=== PATIENT | male | born 1975 | race African-American/Black ===

== ENCOUNTER 2024-01-02 06:49 | Emergency (ER) | payer OTHER, SELFPAY ==
[2024-01-02 07:13] VITALS: BP 121/75; PULSE 77; RESP 18; TEMP 36.6; O2SAT 99; BMI 22.2
[2024-01-02 07:46] LABS: IDNOW Serial# 08D9AD1C; Strep A Nucleic Acid Negative (Negative)
[2024-01-02 08:13] LABS: Influenza A PCR NEGATIVE (Negative); Influenza B PCR NEGATIVE (Negative); Resp Syncy Virus RNA Qual PCR NEGATIVE (Negative); SARS COV2 PCR INHOUSE POSITIVE (Negative)
--- NOTE | 2024-01-02 08:26 | ED.GENADULT ---
HPI - General Adult General Chief complaint: Upper Respiratory Symptoms Stated complaint: pt states flu Time Seen by Provider: 01/02/24 08:26 Source: patient Mode of arrival: ambulatory Limitations: no limitations History of Present Illness ED Provider: Elisa Bills PA-C HPI narrative: Patient is a 48 year old assigned male at with no reported medical history presenting to the emergency department today with congestion, cough, headache, body aches, and right 4th finger pain / swelling. Patient states that over the last 2 days he has had a cough, congestion, headache, and body aches. Patient states that he also noticed his right 4th finger has some redness, pain, and swelling around his nail. Patient denies any dizziness, lightheadedness, abdominal pain, nausea, vomiting, fever, chills, blurry vision, double vision, loss of vision, chest pain, difficulty breathing, shortness of breath, back pain, night sweats, pain with urination, increased urinary frequency, increased urinary urgency, blood in his urine or stool, syncope or a near syncopal episode, recent trauma or falls, bowel incontinence, bladder incontinence, or any other complaints at this time. Onset (ago): day(s) (2) Severity: mild Relieving factors: none Exacerbating factors: none Associated symptoms: cough and headaches Treatments prior to arrival: none Related Data Previous Rx's ?Medication ?Instructions ?Recorded cephalexin 500 mg capsule 500 mg PO Q6H 7 days #28 caps 01/02/24 Allergies Allergy/AdvReac Type Severity Reaction Status Date / Time No Known Allergies Allergy Verified 01/02/24 07:15 Review of Systems Constitutional: Constitutional: Reports no additional constitutional complaints, Reports body ache(s), Denies chills, Denies fever(s), Reports headache(s) and Denies night sweats Eyes: Eyes: Reports no additional eye complaints, Denies blurry vision, Denies change in vision, Denies diplopia, Denies eye discharge, Denies loss of vision and Denies eye pain ENT: Denies dizziness, Reports headache(s) and Reports nasal congestion Cardiovascular: Cardiovascular: Reports no additional cardiovascular complaints, Denies chest pain, Denies lightheadedness, Denies Loss of Consciousness and Denies dyspnea Respiratory: Respiratory: Reports no additional respiratory complaints, Reports cough and Denies dyspnea Gastrointestinal: Gastrointestinal: Reports no additional gastrointestinal complaints, Denies abdominal pain, Denies melena, Denies hematochezia, Denies change in bowel habits and Denies change in stool character Genitourinary: Genitourinary: Reports no additional male genitourinary complaints, Denies hematuria, Denies oliguria, Denies difficulty urinating, Denies dysuria, Denies urinary frequency, Denies urinary hesitancy, Denies urinary incontinence and Denies urinary urgency Musculoskeletal: Musculoskeletal: Reports no additional musculoskeletal complaints, Denies numbness and Denies tingling Neurologic: Denies dizziness, Reports headache(s), Denies loss of vision, Denies numbness and Denies tingling Psychiatric: Psychiatric: Reports no additional psychiatric complaints Endocrine: Endocrine: Reports no additional endocrine complaints Hematologic/Lymphatic: Hematologic/Lymphatic: Reports no additional hematologic/lymphatic complaints Allergic/Immunologic: Allergic/Immunologic: Reports no additional allergic/immunologic complaints PMFSH Past Medical History Attestation statement: The following information was validated with the patient. Source: old records reviewed and nursing notes reviewed Social History Social History Advance Directives: No Advance Directives Information Provided: Yes Physical Exam ED Vital Signs: Vital Signs - 24 hr 01/02/24 07:13 01/02/24 08:51 Temperature 97.8 F 97.8 F Pulse Rate 77 77 Respiratory Rate 18 18 Blood Pressure 121/75 121/75 Pulse Oximetry 99 99 Oxygen Delivery Method Room Air Room Air BMI result Body Mass Index 22.2 Const General: cooperative, no acute distress, alert and awake Nutritional Appearance: well nourished Orientation/consciousness: patient oriented x3 Limitations: no limitations [facility] Head: Yes normal to inspection and Yes atraumatic Ears: hearing grossly normal bilaterally and external ears normal General nose exam: Normal external nose present, no nasal discharge noted and no epistaxis Face and sinus: Yes normal facial exam, No abrasion and No laceration Mouth: Normal oral and palatal mucosa present, no drooling and no muffled voice Eyes General: appearance normal, both eyes and all related structures Periorbital: periorbital findings normal Eyelids: Yes eyelids normal Conjunctivae: conjunctivae normal Pupils: Equal, round and reactive pupils present EOM: EOMs intact bilaterally Neck Neck: Yes normal visual inspection, Yes full ROM and Yes no lymphadenopathy Chest Chest palpation & inspection: normal inspection of the chest Resp Effort & Inspection: normal respiratory effort and able to speak in complete sentences GI Inspection: Yes normal to inspection Neuro General: patient oriented x3 and moves all extremities Cranial nerves: Yes Equal, round and reactive pupils present Cognition (Neuro): normal cognition Extrem Other: minimal swelling present around the finger nail of the right 4th digit with minimal erythema and warmth General: Yes full ROM and Yes capillary refill normal Psych Appearance: grossly normal Mental Status: mental status grossly normal Affect: normal affect Attitude: cooperative Thought process: Normal thought process present Thought content: Normal thought content present Insight: Good insight present (Psych) Medical Decision Making Medical Decision Making MDM Narrative: Patient is a 48 year old assigned male at with no reported medical history presenting to the emergency department today with right 4th finger pain, headache, cough, congestion, and body aches. Patient's physical exam was as noted in the physical exam portion of this note. Patient's right 4th finger has a paronychia with no fluctuance. Patient's Influenza and RSV swabs were negative. Patient's COVID-19 test was positive. I explained my physical exam findings as well as all test results to the patient. I answered all questions asked by the patient. I stressed the importance of the patient taking his medication as directed (either prescribed or as the over the counter packaging recommends). I stressed the importance of the patient following up with his primary care provider. I stressed the importance of the patient returning to the emergency department immediately if his symptoms were to worsen or if he were to develop any dizziness, shortness of breath, difficulty breathing, chest pain, blurry vision, loss of vision, nausea, vomiting, abdominal pain, fever, chills, back pain, or any other complaints. Patient verbalized agreement and understanding with this treatment plan and discharge. Differential Diagnosis Differential Diagnoses: The differential diagnosis associated with the presentation includes COVID-19 Influenza RSV Paronychia Admission/Observation Consideration of admission/observation: Escalation of care including admission/observation considered Patient would have been admitted to the hospital had his work up had any findings where hospital admission was appropriate and his clinical presentation warranted hospital admission. Lab Data [facility] Lab Attestation statement: I reviewed the patient's lab results. My interpretation of these results are in the MDM Rationale portion of this note. Labs: Lab Results 01/02/24 Range/Units 07:30 Influenza Type A (PCR) NEGATIVE (Negative) Influenza Type B (PCR) NEGATIVE (Negative) RSV RNA Qual (PCR) NEGATIVE (Negative) SARS-CoV-2 RNA (RT-PCR) POSITIVE A (Negative) S. pyogenes GrpA RAYMUNDO Negative (Negative) Prescription Management I considered prescription management with: Antibiotic (patient prescribed an antibiotic for paronychia) Discharge Plan Discharge Clinical Impression: COVID-19, Paronychia of finger Patient Disposition: Home, Self-Care Instructions: Paronychia (ED), COVID-19 (Coronavirus Disease 2019) (ED) Additional Instructions: Apply warm compresses to your right 4th finger. Follow up with your primary care provider. Return to the emergency department immediately if your symptoms worsen or if you develop any dizziness, shortness of breath, difficulty breathing, chest pain, blurry vision, loss of vision, nausea, vomiting, abdominal pain, fever, chills, back pain, or any other complaints. Prescriptions: New cephalexin 500 mg capsule 500 mg PO Q6H 7 Days Qty: 28 0RF Referrals: Yaneth Reich FNP [Primary Care Provider] - Stand Alone Forms: Work/School Release Interventions: ED Discharge Assessment Last Done: 01/02/24 08:51 Discharge Date/Time: 01/02/24 08:52 Print Language: Qatari
[2024-01-02 08:51] VITALS: BP 121/75; PULSE 77; RESP 18; TEMP 36.6; O2SAT 99
== END 2024-01-02 08:52 | disposition home or self-care (01) ==
PROVIDERS: Emergency Provider Student in an Organized Health Care Education/Training Program; PCP Registered Nurse
DX: U07.1 COVID-19 (principal); L03.011 Cellulitis of right finger
CPT/HCPCS: 0241U; 87651; 99283

== ENCOUNTER 2024-03-26 18:43 | Emergency (ER) | payer OTHER, SELFPAY ==
--- NOTE | ~2024-03-26 | XR_ITS ---
EXAMINATION: XR CHEST CLINICAL INFORMATION: Cough COMPARISON: None available. TECHNIQUE: 2 views of the chest were obtained. FINDINGS: No significant abnormality is noted involving the heart, lungs, mediastinum, bony thorax or soft tissues. XR/XR chest 2V IMPRESSION: Unremarkable examination. Electronically signed by: Sandra Covington MD 03/26/2024 07:18 PM EDT RP
[2024-03-26 19:02] VITALS: BP 111/73; PULSE 82; RESP 20; TEMP 37; O2SAT 98; BMI 23.6
--- NOTE | 2024-03-26 19:04 | ED_ITS ---
HPI - General Adult General Chief complaint: Upper Respiratory Symptoms Stated complaint: congested cough fever Time Seen by Provider: 03/26/24 23:05 Source: patient Mode of arrival: ambulatory Limitations: no limitations History of Present Illness HPI narrative: Patient is a 49-year-old male who presents emergency department for evaluation of a nonproductive cough, nasal congestion, body aches with onset last night. 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 Denies fevers, chills, headache, neck pain, neck stiffness, chest pain, difficulty breathing, sore throat, nausea, vomiting, abdominal pain, numbness or tingling of the extremities, genitourinary symptoms. Related Data Previous Rx's ?Medication ?Instructions ?Recorded cephalexin 500 mg capsule 500 mg PO Q6H 7 days #28 caps 01/02/24 Allergies Allergy/AdvReac Type Severity Reaction Status Date / Time No Known Allergies Allergy Verified 03/26/24 19:03 Review of Systems Review of Systems: Yes all other systems are reviewed and are negative [facility] Past Medical History Attestation statement: The following information was validated with the patient. Source: old records reviewed Social History Social History Advance Directives: No Advance Directives Information Provided: Yes Do you have a plan to hurt others: No Plan Physical Exam ED Vital Signs: Vital Signs - 24 hr 03/26/24 19:02 03/26/24 22:54 Temperature 98.6 F 98.4 F Pulse Rate 82 86 Respiratory Rate 20 20 Blood Pressure 111/73 128/72 Pulse Oximetry 98 98 Oxygen Delivery Method Room Air Room Air BMI result Body Mass Index 23.6 Appearance: Alert.?Oriented to person, place and time. No acute distress.?Normal affect. Eyes: Pupils equal, round and reactive to light.? ENT: Pharynx normal.??TM normal bilaterally. Nasal congestion, no tenderness upon palpation of the maxillary or frontal sinus Neck: Normal inspection.? Neck supple.??No cervical adenopathy CVS: Heart sounds normal. Normal heart rate and rhythm.? Pulses normal.?? Respiratory: No respiratory distress.? Lung sounds clear to auscultation bilaterally?? Abdomen: Soft and non-tender. Normoactive bowel sounds. ? Skin: Skin warm and dry.? Normal skin color.? Extremities: No lower extremity edema.? Neuro: Moves all extremities spontaneously. Sensation intact bilaterally. Ambulates with normal steady gait. Course Course Course Narrative: RME, this is a rapid medical exam performed by Adolfo Flores please refer to primary provider for complete H&P- 49 year old male presents for evaluation of cough, congestion and body aches. He works here in the kitchen. Plan for viral swabs and chest x-rays. His vitals are stable Medical Decision Making Medical Decision Making MDM Narrative: Patient is a 49-year-old male, presenting for evaluation of upper respiratory symptoms. COVID-19/influenza/RSV testing negative. At this time history and physical exam not consistent with ACS/PE/pneumonia. Well-appearing, nontoxic, afebrile, no tachycardia or tachypnea/hypoxia. Speaking clear full sentences, ambulatory with steady gait. Discussed conservative treatment including rest, hydration, Tylenol/ibuprofen as needed for fever and body aches, saline nasal spray, humidifier, adrl-cll-slyrmsl cold medication. Advised to follow-up with primary care provider as needed, discussed reasons to return back to the emergency department. All questions were answered. Patient discharged home in stable condition. Provided with a return to work/school note. Differential Diagnosis Differential Diagnoses: The differential diagnosis associated with the present ation includes ( See narrative above) Lab Data MDM Lab Attestation statement: I reviewed the patient's lab results. ( see narrative above) Labs: Lab Results 03/26/24 Range/Units 19:09 Influenza Type A (PCR) NEGATIVE (Negative) Influenza Type B (PCR) NEGATIVE (Negative) RSV RNA Qual (PCR) NEGATIVE (Negative) SARS-CoV-2 RNA (RT-PCR) NEGATIVE (Negative) Independent Interpretation I performed an independent interpretation of an: Plain X-Ray (No consolidation or infiltrate) Radiology Impression Discussion of test interpretation with radiology: I have reviewed the radiologist's reading. Radiologist Impression: XR/XR chest 2V IMPRESSION: Unremarkable examination External Record Review External record reviewed: Outpatient record Prescription Management I considered prescription management with: Pain Medication ( acetaminophen/ibuprofen) Discharge Plan Discharge Clinical Impression: Upper respiratory infection Patient Disposition: Home, Self-Care Instructions: Upper Respiratory Infection (ED) Additional Instructions: Be sure to rest, stay well hydrated drinking plenty of fluids, eat small frequent meals. Tylenol/ibuprofen can be used as needed for fever/pain. [id number]-[id number] cold medications may be helpful as well for symptoms. Saline nasal spray, humidifier may be helpful for nasal congestion. You may return to the emergency department with any new or worsening symptoms or concerns. Follow-up with your primary care provider as needed. Should remain out of school/ work until symptoms have resolved and have been without a fever for 24 hours without the use of Tylenol or ibuprofen. Prescriptions: No Action cephalexin 500 mg capsule 500 mg PO Q6H 7 Days Qty: 28 0RF Referrals: Physician,Unknown J [Primary Care Provider] - Stand Alone Forms: Work/School Release Print Language: Estonian
[2024-03-26 19:51] LABS: Influenza A PCR NEGATIVE (Negative); Influenza B PCR NEGATIVE (Negative); Resp Syncy Virus RNA Qual PCR NEGATIVE (Negative); SARS COV2 PCR INHOUSE NEGATIVE (Negative)
[2024-03-26 22:54] VITALS: BP 128/72; PULSE 86; RESP 20; TEMP 36.9; O2SAT 98
[2024-03-27 00:18] VITALS: BP 128/72; PULSE 86; RESP 20; TEMP 36.9; O2SAT 98
== END 2024-03-27 00:19 | disposition home or self-care (01) ==
PROVIDERS: Physician Assistant; Emergency Provider Emergency Medicine
DX: R05.9 Cough, unspecified (principal); J06.9 Acute upper respiratory infection, unspecified; Z03.818 Encounter for observation for suspected exposure to other biological agents ruled out
CPT/HCPCS: 0241U; 71046; 99282; 99283

== ENCOUNTER 2024-03-28 18:06 | Emergency (ER) | payer OTHER, SELFPAY ==
--- NOTE | ~2024-03-28 | XR_ITS ---
EXAMINATION: XR CHEST CLINICAL INFORMATION: Worsening cough COMPARISON: Chest x-ray on 03/26/2024 TECHNIQUE: 2 views of the chest were obtained. FINDINGS: No significant abnormality is noted involving the heart, lungs, mediastinum, bony thorax or soft tissues. XR/XR chest 2V IMPRESSION: Unremarkable examination. Electronically signed by: Sandra Covington MD 03/28/2024 06:57 PM EDT RP
[2024-03-28 18:27] VITALS: BP 113/74; PULSE 94; RESP 20; TEMP 36.6; O2SAT 99; BMI 22.8
--- NOTE | 2024-03-28 18:27 | ED.GENADULT ---
HPI - General Adult General Chief complaint: Upper Respiratory Symptoms Stated complaint: cold symptoms Time Seen by Provider: 03/28/24 19:23 Source: patient Limitations: no limitations History of Present Illness ED Provider: Maria Elena stephenson PA-C HPI narrative: 49-year-old male presents with cough and cold symptoms x3 days. Associated productive cough, nasal congestion and generalized weakness. Denies change in symptom or new onset fever. Related Data Previous Rx's ?Medication ?Instructions ?Recorded cephalexin 500 mg capsule 500 mg PO Q6H 7 days #28 caps 01/02/24 albuterol sulfate 90 mcg/actuation 2 puff inhalation Q4-6H PRN 03/28/24 aerosol inhaler shortness of breath or wheezing #8.5 grams prednisone 20 mg tablet 40 mg (2 x 20 mg) PO DAILY #8 tabs 03/28/24 Allergies Allergy/AdvReac Type Severity Reaction Status Date / Time No Known Allergies Allergy Verified 03/28/24 18:31 Review of Systems Review of Systems: Yes all other systems are reviewed and are negative Constitutional: Constitutional: Reports fatigue and Denies fever(s) ENT: Reports nasal congestion Respiratory: Respiratory: Reports cough and Reports excessive phlegm production Gastrointestinal: Gastrointestinal: Denies nausea and Denies vomiting Endocrine: Endocrine: Reports fatigue PMFSH Past Medical History Attestation statement: The following information was validated with the patient. Social History Social History Smoked in Last 30 Days: Yes Use of substances other than those prescribed or required for medical reasons: Yes Substance Use Type: Marijuana Substance Use Frequency: Chronic Longstanding Last Used Substance: Just Prior to Admission Advance Directives: No Advance Directives Information Provided: No Physical Exam ED Vital Signs: Vital Signs - 24 hr 03/28/24 18:27 03/28/24 20:01 03/28/24 22:21 Temperature 97.8 F 99.4 F 98.6 F Pulse Rate 94 75 80 Respiratory Rate 20 16 16 Blood Pressure 113/74 126/60 111/64 Pulse Oximetry 99 96 98 Oxygen Delivery Method Room Air Room Air Room Air BMI result Body Mass Index 22.8 Const Other: Alert, overall well in appearance Orientation/consciousness: patient oriented x3 Resp Other: Expiratory wheezes noted posterior steiner, speaking in complete sentences, no tachypnea Cardio Other: Normal peripheral perfusion Skin Other: Warm dry no rash Neuro General: patient oriented x3, no focal motor deficits and CN's II-XI intact bilaterally Psych Other: Calm cooperative Medications Administered Discontinued Medications Generic Name Dose Route Start Last Admin Trade Name Lyle PRN Reason Stop Dose Admin Albuterol Sulfate 7.5 mg 03/28/24 20:28 03/28/24 21:12 Albuterol Sulfate (0.083%) 2.5 Mg/3 Ml Vial.Neb INHALE 03/28/24 20:29 7.5 mg ONCE ONE Administration Prednisone 40 mg 03/28/24 20:28 03/28/24 20:40 Prednisone 20 Mg Tablet PO 03/28/24 20:29 40 mg ONCE ONE Administration Medical Decision Making Medical Decision Making [facility] Narrative: 49-year-old male presents with cough and cold symptoms x3 days. Associated productive cough, nasal congestion and generalized weakness. Denies change in symptom or new onset fever. No relevant chronic issues History per patient I have considered the following differential diagnoses: Asthma exacerbation, viral syndrome, bronchitis, pneumonia Plan: Patient seen in the ER on March 26 for same symptoms, he had a negative chest x-ray and negative viral panel. Today he is wheezing, he is stating he has been using his son's inhalers. We will be giving an updraft, steroid then sending with additional medication. Chest x-ray and viral panel were repeated again today. I have independently reviewed the following tests: Labs: Slight leukocytosis, not anemic, no electrolyte abnormality, viral panel negative Chest x-ray: XR/XR chest 2V IMPRESSION: Unremarkable examination. Electronically signed by: Sandra Covington MD 03/28/2024 06:57 PM EDT RP Lab Data 03/28/24 18:44 03/28/24 18:44 Labs: Lab Results 03/28/24 Range/Units 18:44 WBC 11.5 H (4.8-10.8) X10*3/uL RBC 4.97 (4.60-5.80) X10*6/uL Hgb 15.2 (14.0-18.0) g/dl Hct 43.1 (42.0-52.0) % MCV 86.7 (80.0-98.0) fL MCH 30.6 (27.0-33.0) pg MCHC 35.3 (31.0-36.0) g/dl RDW 12.5 (11.0-16.0) % Plt Count 264 (160-400) X10*3/uL MPV 10.0 (9.4-12.4) fL Immature Gran % (Auto) 0.2 (0.0-0.4) % Neut % (Auto) 61.7 (45-73) % Lymph % (Auto) 23.2 (20-40) % Mcdonough % (Auto) 11.6 H (2-11) % Eos % (Auto) 2.7 (0-4) % Baso % (Auto) 0.6 (0-2) % Lymph # (Auto) 2.7 (1.2-4.9) X10*3/uL Mcdonough # (Auto) 1.3 H (0.1-1.2) X10*3/uL Eos # (Auto) 0.3 (0.0-0.4) X10*3/uL Baso # (Auto) 0.1 (0.0-0.2) X10*3/uL Abs Immat Gran (auto) 0.02 (0.00-0.03) X10*3/uL Absolute Neuts (auto) 7.1 (2.0-8.3) x10*3/uL Absolute Nucleated RBC 0.000 (0.0-0.012) X10*3/uL Nucleated RBC % (auto) 0.0 (0.0-0.2) /100WBC Sodium 140 (135-145) mmol/L Potassium 3.8 (3.3-5.1) mmol/L Chloride 106 (96-108) mmol/L Carbon Dioxide 24 (22-29) mmol/L Anion Gap 14 (12-20) BUN 9 (9-16) mg/dL Creatinine 0.83 (0.5-1.4) mg/dL Estim Creat Clear Calc 105.8 Estimated GFR > 60 Random Glucose 115 (60-115) mg/dL Calcium 9.0 (8.4-10.2) mg/dL Total Bilirubin 0.3 (0.0-1.0) mg/dL AST 22 (5-37) U/L ALT 17 (0-40) U/L Alkaline Phosphatase 54 (39-117) U/L Total Protein 7.3 (6.5-8.0) g/dL Albumin 4.0 (3.5-5.0) g/dL Influenza Type A (PCR) NEGATIVE (Negative) Influenza Type B (PCR) NEGATIVE (Negative) RSV RNA Qual (PCR) NEGATIVE (Negative) SARS-CoV-2 RNA (RT-PCR) NEGATIVE (Negative) Discharge Plan Discharge Clinical Impression: Viral syndrome, Reactive airway disease without asthma Patient Disposition: Home, Self-Care Instructions: How to Use a Metered-Dose Inhaler (ED), Viral Syndrome (ED) Additional Instructions: The viral panel and chest x-ray were negative, you do not have pneumonia, you do not have RSV, influenza or COVID. Your airway has become reactive due to yet another respiratory virus that his circulating in the community. Use the inhaler as needed for wheezing, take the steroid as directed. You need to follow up with your primary care provider within a week. Prescriptions: New albuterol sulfate 90 mcg/actuation HFA aerosol inhaler 2 puff inhalation Q4-6H MDD 4 PRN (Reason: shortness of breath or wheezing) Qty: 8.5 0RF prednisone 20 mg tablet 40 mg PO DAILY Qty: 8 0RF No Action cephalexin 500 mg capsule 500 mg PO Q6H 7 Days Qty: 28 0RF Stand Alone Forms: Work/School Release Print Language: Montserratian
[2024-03-28 18:49] LABS: MANUAL DIFF FLAG NO
[2024-03-28 18:51] LABS: Basophils Absolute Auto 0.1 X10*3/uL (0.0-0.2); Basophils Percent Auto 0.6 % (0-2); Eosinophils Absolute Auto 0.3 X10*3/uL (0.0-0.4); Eosinophils Percent Auto 2.7 % (0-4); Hematocrit 43.1 % (42.0-52.0); Hemoglobin 15.2 g/dl (14.0-18.0); Imm Gran Abs Auto 0.02 X10*3/uL (0.00-0.03); Imm Gran Pct Auto 0.2 % (0.0-0.4); Lymphocytes Absolute Auto 2.7 X10*3/uL (1.2-4.9); Lymphocytes Percent Auto 23.2 % (20-40); Mean Corpuscular HGB Conc 35.3 g/dl (31.0-36.0); Mean Corpuscular Hemoglobin 30.6 pg (27.0-33.0); Mean Corpuscular Volume 86.7 fL (80.0-98.0); Monocytes Absolute Auto 1.3 X10*3/uL (0.1-1.2); Monocytes Percent Auto 11.6 % (2-11); Neutrophils Absolute Auto 7.1 x10*3/uL (2.0-8.3); Neutrophils Percent Auto 61.7 % (45-73); Platelet Count 264 X10*3/uL (160-400); Red Blood Count 4.97 X10*6/uL (4.60-5.80); Red Cell Distribution Width 12.5 % (11.0-16.0); White Blood Count 11.5 X10*3/uL (4.8-10.8)
[2024-03-28 19:08] LABS: Alanine Aminotransferase 17 U/L (0-40); Alkaline Phosphatase 54 U/L (39-117); Anion Gap 14 (12-20); Aspartate Amino Transferase 22 U/L (5-37); Bilirubin Total 0.3 mg/dL (0.0-1.0); Blood Urea Nitrogen 9 mg/dL (9-16); Carbon Dioxide 24 mmol/L (22-29); Chloride 106 mmol/L (96-108); Creatinine Clr Calc Pharmacy 105.8; Estimated Glomerular Filt Rate > 60; Glucose Random 115 mg/dL (60-115); Potassium 3.8 mmol/L (3.3-5.1); Sodium 140 mmol/L (135-145); Total Protein 7.3 g/dL (6.5-8.0)
[2024-03-28 19:27] LABS: Influenza A PCR NEGATIVE (Negative); Influenza B PCR NEGATIVE (Negative); Resp Syncy Virus RNA Qual PCR NEGATIVE (Negative); SARS COV2 PCR INHOUSE NEGATIVE (Negative)
[2024-03-28 20:01] VITALS: BP 126/60; PULSE 75; RESP 16; TEMP 37.4; O2SAT 96
[2024-03-28] MEDS: predniSONE 20 MG TABLET 40 MG PO (20:40)
[2024-03-28] MEDS: Albuterol Sulfate (0.083%) 2.5 MG/3 ML VIAL.NEB 7.5 MG INHALE (21:12)
[2024-03-28 22:21] VITALS: BP 111/64; PULSE 80; RESP 16; TEMP 37; O2SAT 98
[2024-03-28 22:44] VITALS: BP 111/64; PULSE 80; RESP 16; TEMP 37; O2SAT 98
[2024-03-29 11:35] LABS: Adenovirus PCR Not Detected (Not Detect.); Bordetella parapertussis PCR Not Detected (Not Detect.); Bordetella pertussis PCR Not Detected (Not Detect.); Chlamydia pneumoniae PCR Not Detected (Not Detect.); Coronavirus 229E PCR Not Detected (Not Detect.); Coronavirus HKU1 PCR Not Detected (Not Detect.); Coronavirus NL63 PCR Not Detected (Not Detect.); Coronavirus OC43 PCR Not Detected (Not Detect.); Human metapneumovirus PCR Not Detected (Not Detect.); Influenza A PCR Not Detected (Not Detect.); Influenza B PCR Not Detected (Not Detect.); Mycoplasma pneumoniae PCR Not Detected (Not Detect.); Parainfluenza 1 PCR Not Detected (Not Detect.); Parainfluenza 2 PCR Not Detected (Not Detect.); Parainfluenza 3 PCR Not Detected (Not Detect.); Parainfluenza 4 PCR Not Detected (Not Detect.); RSV PCR Not Detected (Not Detect.); Rhino/Enterovirus PCR Detected (Not Detect.)
[2024-03-29 12:11] LABS: SARS-CoV-2 PCR Not Detected (Not Detect.)
== END 2024-03-28 22:44 | disposition home or self-care (01) ==
PROVIDERS: Physician Assistant Medical; Emergency Provider Emergency Medicine; PCP Registered Nurse
DX: B34.1 Enterovirus infection, unspecified (principal); Z03.818 Encounter for observation for suspected exposure to other biological agents ruled out; R05.9 Cough, unspecified
CPT/HCPCS: 0241U; 36415; 71046; 80053; 85025; 87633; 99284

== ENCOUNTER 2024-04-06 19:27 | Emergency (ER) | payer OTHER, SELFPAY ==
[2024-04-06 19:30] VITALS: BP 107/62; PULSE 92; RESP 18; TEMP 36.8; O2SAT 98; BMI 22.8
--- NOTE | 2024-04-06 19:40 | ED.EXTPRO ---
HPI - Extremity Problem General Chief complaint: Extremity Injury, Upper Stated complaint: RT ring finger infection? Source: patient Mode of arrival: ambulatory Limitations: no limitations History of Present Illness ED Provider: Elisa Bills PA-C HPI Narrative: Patient is a 49 year old assigned male at with no reported medical history presenting to the emergency department today with right 4th finger swelling. Patient states that over the last few days he has noticed that his right 4th finger was swollen. Patient denies any dizziness, lightheadedness, abdominal pain, nausea, vomiting, fever, chills, blurry vision, double vision, loss of vision, chest pain, difficulty breathing, shortness of breath, back pain, night sweats, pain with urination, increased urinary frequency, increased urinary urgency, blood in his urine or stool, syncope or a near syncopal episode, recent trauma or falls, bowel incontinence, bladder incontinence, or any other complaints at this time. Onset (ago): day(s) Location: right and other (4th finger) Relieving factors: nothing Exacerbating factors: nothing Associated symptoms: denies other symptoms Related Data Previous Rx's ?Medication ?Instructions ?Recorded cephalexin 500 mg capsule 500 mg PO Q6H 7 days #28 caps 01/02/24 albuterol sulfate 90 mcg/actuation 2 puff inhalation Q4-6H PRN 03/28/24 aerosol inhaler shortness of breath or wheezing #8.5 grams prednisone 20 mg tablet 40 mg (2 x 20 mg) PO DAILY #8 tabs 03/28/24 cephalexin 500 mg capsule 500 mg PO QID 5 days #20 caps 04/07/24 doxycycline hyclate 100 mg capsule 100 mg PO BID 5 days #10 caps 04/07/24 efinaconazole 10 % topical 1 appl topical DAILY #8 mL 04/07/24 solution with applicator Allergies Allergy/AdvReac Type Severity Reaction Status Date / Time No Known Allergies Allergy Verified 04/07/24 07:17 Review of Systems Constitutional: Constitutional: Reports no additional constitutional complaints, Denies chills, Denies fever(s) and Denies night sweats Eyes: Eyes: Reports no additional eye complaints, Denies blurry vision, Denies change in vision, Denies diplopia, Denies eye discharge, Denies loss of vision and Denies eye pain ENT: Denies dizziness Cardiovascular: Cardiovascular: Reports no additional cardiovascular complaints, Denies chest pain, Denies lightheadedness, Denies Loss of Consciousness and Denies dyspnea Respiratory: Respiratory: Reports no additional respiratory complaints and Denies dyspnea Gastrointestinal: Gastrointestinal: Reports no additional gastrointestinal complaints, Denies abdominal pain, Denies melena, Denies hematochezia, Denies change in bowel habits and Denies change in stool character Genitourinary: Genitourinary: Reports no additional male genitourinary complaints, Denies hematuria, Denies oliguria, Denies difficulty urinating, Denies dysuria, Denies urinary frequency, Denies urinary hesitancy, Denies urinary incontinence and Denies urinary urgency Musculoskeletal: Musculoskeletal: Reports no additional musculoskeletal complaints, Denies numbness and Denies tingling Comments: right 4th finger swelling Neurologic: Denies dizziness, Denies loss of vision, Denies numbness and Denies tingling Psychiatric: Psychiatric: Reports no additional psychiatric complaints Endocrine: Endocrine: Reports no additional endocrine complaints Hematologic/Lymphatic: Hematologic/Lymphatic: Reports no additional hematologic/lymphatic complaints Allergic/Immunologic: Allergic/Immunologic: Reports no additional allergic/immunologic complaints [facility] [place] Past Medical History Attestation statement: The following information was validated with the patient. Source: old records reviewed and nursing notes reviewed Social History Social History Substance Use Type: Marijuana Advance Directives: No Advance Directives Information Provided: No Do you have a plan to hurt others: No Plan Physical Exam Vital Signs: Vital Signs: Last Vital Signs Temp 98.3 F 04/06/24 19:30 Pulse 92 04/06/24 19:30 Resp 18 04/06/24 19:30 BP 107/62 04/06/24 19:30 Pulse Ox 98 04/06/24 19:30 O2 Del Method Room Air 04/06/24 19:30 BMI result Body Mass Index 22.8 Const: General: cooperative, no acute distress, alert and awake Nutritional Appearance: well nourished Orientation/consciousness: patient oriented x3 Limitations: no limitations HEENT: Head: Yes normal to inspection and Yes atraumatic Ears: hearing grossly normal bilaterally and external ears normal General nose exam: Normal external nose present, no nasal discharge noted and no epistaxis Face and sinus: Yes normal facial exam, No abrasion and No laceration Mouth: Normal oral and palatal mucosa present, no drooling and no muffled voice Eyes: General: appearance normal, both eyes and all related structures Periorbital: periorbital findings normal Eyelids: Yes eyelids normal Conjunctivae: conjunctivae normal Pupils: Equal, round and reactive pupils present EOM: EOMs intact bilaterally Neck: Neck: Yes normal visual inspection, Yes full ROM and Yes no lymphadenopathy Chest: Chest palpation & inspection: normal inspection of the chest Resp: Effort & Inspection: normal respiratory effort and able to speak in complete sentences GI: Inspection: Yes normal to inspection Neuro: General: patient oriented x3 and moves all extremities Cranial nerves: Yes Equal, round and reactive pupils present Cognition (Neuro): normal cognition Extrem: Other: right 4th finger paronychia General: Yes full ROM and Yes capillary refill normal Psych: Appearance: grossly normal Mental Status: mental status grossly normal Affect: normal affect Attitude: cooperative Thought process: Normal thought process present Thought content: Normal thought content present Insight: Good insight present (Psych) Course Course Course Narrative: RME performed by Elisa Bills PA-C. Patient is a 49 year old assigned male at presenting to the emergency department with a right 4th finger swelling. Patient states over the last few days he has noted his right ring finger is welling. Detailed physical exam and review of systems are deferred to the bevel mill operator. Patient placed back in the waiting room pending room availability. Medical Decision Making Medical Decision Making MDM Narrative: Patient is a 49 year old assigned male at with no reported medical history presenting to the emergency department today with right 4th finger swelling. Patient's limited physical exam performed in triage was as noted in the physical exam portion of this note. Patient left the department without completing treatment. Patient left the department before myself or any of the other emergency department clinicians could explain to or review with the patient; physical exam findings, test results, need or lack there of for additional testing, need or lack there of for a procedure to be performed, need or lack there of for hospital admission / transfer, need or lack there of for prescription medication, treatment options, or a treatment plan. Differential Diagnosis Differential Diagnoses: The differential diagnosis associated with the presentation includes Paronychia Admission/Observation Consideration of admission/observation: Escalation of care including admission/observation considered Patient would have been admitted to the hospital had he completed his work up and it had any findings where hospital admission was appropriate, his clinical presentation warranted hospital admission, had myself or any other emergency department traffic freight router had the ability to discuss need or lack there of for hospital admission, and the patient hadn't left the department without completing treatment. Discharge Plan Discharge Clinical Impression: Finger swelling Patient Disposition: Left W/O Completing Treatment Prescriptions: No Action cephalexin 500 mg capsule 500 mg PO Q6H 7 Days Qty: 28 0RF albuterol sulfate 90 mcg/actuation HFA aerosol inhaler 2 puff inhalation Q4-6H MDD 4 PRN (Reason: shortness of breath or wheezing) Qty: 8.5 0RF prednisone 20 mg tablet 40 mg PO DAILY Qty: 8 0RF cephalexin 500 mg capsule 500 mg PO QID 5 Days Qty: 20 0RF doxycycline hyclate 100 mg capsule 100 mg PO BID 5 Days Qty: 10 0RF efinaconazole 10 % solution with applicator 1 appl topical DAILY Qty: 8 0RF Discharge Date/Time: 04/07/24 04:21
--- NOTE | 2024-04-07 04:21 | PC.NURSE ---
Pt no answer when called for reassessment.
== END 2024-04-07 04:21 | disposition left against medical advice (07) ==
LOC: HO.ED 04-07 04:17
PROVIDERS: Emergency Provider Emergency Medicine
DX: M79.89 Other specified soft tissue disorders (principal); Z53.21 Procedure and treatment not carried out due to patient leaving prior to being seen by health care provider
CPT/HCPCS: 99281

== ENCOUNTER 2024-04-07 06:55 | Emergency (ER) | payer OTHER, SELFPAY ==
[2024-04-07 07:15] VITALS: BP 115/70; PULSE 84; RESP 18; TEMP 36.3; O2SAT 99; BMI 22.8
[2024-04-07 09:03] VITALS: BP 122/74; PULSE 56; RESP 14; TEMP 36.3; O2SAT 100
--- NOTE | 2024-04-07 09:17 | ED_ITS ---
HPI - Extremity Problem General Chief complaint: Extremity Injury, Upper Stated complaint: Finger pain here earlier Time Seen by Provider: 04/07/24 09:02 Source: patient and RN notes reviewed Mode of arrival: ambulatory Limitations: no limitations History of Present Illness ED Provider: Katerine Encinas PA-C HPI Narrative: This is a 49-year-old male who presents emergency department with complaints of ongoing right 4th digit pain, swelling x 1 month. 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 He has been soaking his finger in warm water however states that this is not alleviated his pain. He states that he previously had a similar episode where he had to have this excised and drained however states that he feels as though it is not at that point. He denies any fevers or chills. He is right-handed. He states that he noticed the nail on his fingers is now more discolored. He recently completed a course of antibiotics, he was on amoxicillin which he completed which provided him with some relief. No other complaints or concerns at this time. MD Complaint: extremity pain and extremity swelling Onset (ago): month(s) Pain Consistency: constant Location: right and upper extremity Radiation: none Relieving factors: nothing Exacerbating factors: palpation Associated symptoms: denies other symptoms Related Data Previous Rx's ?Medication ?Instructions ?Recorded cephalexin 500 mg capsule 500 mg PO Q6H 7 days #28 caps 01/02/24 albuterol sulfate 90 mcg/actuation 2 puff inhalation Q4-6H PRN 03/28/24 aerosol inhaler shortness of breath or wheezing #8.5 grams prednisone 20 mg tablet 40 mg (2 x 20 mg) PO DAILY #8 tabs 03/28/24 cephalexin 500 mg capsule 500 mg PO QID 5 days #20 caps 04/07/24 doxycycline hyclate 100 mg capsule 100 mg PO BID 5 days #10 caps 04/07/24 efinaconazole 10 % topical 1 appl topical DAILY #8 mL 04/07/24 solution with applicator Allergies Allergy/AdvReac Type Severity Reaction Status Date / Time No Known Allergies Allergy Verified 04/07/24 07:17 Review of Systems Review of Systems: Yes all other systems are reviewed and are negative PMFSH Social History Social History Substance Use Type: Marijuana Advance Directives: No Advance Directives Information Provided: No Do you have a plan to hurt others: No Plan Physical Exam Vital Signs: Vital Signs: Last Vital Signs Temp 97.4 F 04/07/24 09:03 Pulse 56 04/07/24 09:03 Resp 14 04/07/24 09:03 BP 122/74 04/07/24 09:03 Pulse Ox 100 04/07/24 09:03 O2 Del Method Room Air 04/07/24 09:03 BMI result Body Mass Index 22.8 Const: Other: General: Awake, alert, and oriented X3. No acute distress. HEENT: Normal inspection CVS: Normal heart rate and rhythm. Pulses normal. Respiratory: No respiratory distress Skin: Warm, dry, no rashes noted to exposed skin. Normal skin color. Normal skin turgor. Extremities: Right 4th digit, with mild edema noted to the DIP, no erythema or fluctuance. Nail is discolored with a yellowing like appearance and cracking Neuro: Oriented X 3. No motor deficit. No sensory deficit. Medical Decision Making Medical Decision Making MDM Narrative: This is a 49 year old male who presents emergency department with complaints of ongoing right 4th digit pain and swelling for the last month. On arrival, vital signs within normal limits. Right digit with mild edema, no fluctuance, and discoloration of the nail bed. Discussed that this may have been a old paronychia, there is no area of fluctuance that I think would benefit from an I and D at this time. Patient agrees and would like to start a course of antibiotics, will treat with topical antifungal as well. Advised patient to follow-up with PCP, advised to call today to make an appointment. He understands and agrees with plan. Given strict return precautions. Patient stable for discharge Differential Diagnosis Differential Diagnoses: The differential diagnosis associated with the presentation includes Onychomycosis, paronychia, cellulitis, osteomyelitis-unlikely Discharge Plan Discharge Clinical Impression: Onychomycosis, Cellulitis of finger Patient Disposition: Home, Self-Care Instructions: Cellulitis (ED) Additional Instructions: You were seen in the emergency department due to ongoing finger pain and swelling. Please continue to perform warm soaks. Your nail does appear to have a fungal infection therefore we are treating you with a topical antifungal medication. I am also starting you on 2 different antibiotics, finish the entire course even if you are feeling better. Please follow-up with your primary care physician regarding this visit. If any new or worsening symptoms occur including but not limited to worsening redness, pain, swelling, please return for re-evaluation. Prescriptions: New cephalexin 500 mg capsule 500 mg PO QID 5 Days Qty: 20 0RF doxycycline hyclate 100 mg capsule 100 mg PO BID 5 Days Qty: 10 0RF efinaconazole 10 % solution with applicator 1 appl topical DAILY Qty: 8 0RF No Action cephalexin 500 mg capsule 500 mg PO Q6H 7 Days Qty: 28 0RF albuterol sulfate 90 mcg/actuation HFA aerosol inhaler 2 puff inhalation Q4-6H MDD 4 PRN (Reason: shortness of breath or wheezing) Qty: 8.5 0RF prednisone 20 mg tablet 40 mg PO DAILY Qty: 8 0RF Stand Alone Forms: Work/School Release Print Language: [place]
[2024-04-07 09:41] VITALS: BP 122/74; PULSE 56; RESP 14; TEMP 36.3; O2SAT 100
== END 2024-04-07 09:41 | disposition home or self-care (01) ==
PROVIDERS: Emergency Provider Emergency Medicine; PCP Registered Nurse
DX: L03.011 Cellulitis of right finger (principal); B35.1 Tinea unguium; M79.644 Pain in right finger(s)
CPT/HCPCS: 99283

== ENCOUNTER 2024-04-26 13:09 | Emergency (ER) | payer OTHER, SELFPAY ==
[2024-04-26 13:15] VITALS: BP 122/82; PULSE 77; RESP 20; TEMP 36.5; O2SAT 97; BMI 22.8
--- NOTE | 2024-04-26 13:33 | ED_ITS ---
HPI - General Adult General Chief complaint: Skin/Abscess/Foreign Body Stated complaint: finger issue Time Seen by Provider: 04/26/24 15:00 Source: patient Mode of arrival: ambulatory Limitations: no limitations History of Present Illness ED Provider: Omar RODRIGUEZ HPI narrative: 49 year old man history of cellulitis presents to ED for right thumb pain and he is concerned for early cellulitis infection. Patient states right thumb irritated and becoming swollen with slight redness. Patient has complete range of motion of thumb. Patient denies any recent trauma, fever, chills, insect bite or IV drug use. 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 Patient denies any exposure to any hot oil or hot fluids. Related Data Previous Rx's ?Medication ?Instructions ?Recorded cephalexin 500 mg capsule 500 mg PO Q6H 7 days #28 caps 01/02/24 albuterol sulfate 90 mcg/actuation 2 puff inhalation Q4-6H PRN 03/28/24 aerosol inhaler shortness of breath or wheezing #8.5 grams prednisone 20 mg tablet 40 mg (2 x 20 mg) PO DAILY #8 tabs 03/28/24 cephalexin 500 mg capsule 500 mg PO QID 5 days #20 caps 04/07/24 doxycycline hyclate 100 mg capsule 100 mg PO BID 5 days #10 caps 04/07/24 efinaconazole 10 % topical 1 appl topical DAILY #8 mL 04/07/24 solution with applicator cephalexin 500 mg capsule 500 mg PO QID 7 days #28 caps 04/26/24 doxycycline hyclate 100 mg capsule 100 mg PO BID 7 days #14 caps 04/26/24 naproxen 500 mg tablet 500 mg PO BID PRN pain 7 days #14 04/26/24 tabs Allergies Allergy/AdvReac Type Severity Reaction Status Date / Time No Known Allergies Allergy Verified 04/26/24 13:16 Review of Systems 2 Review of Systems: Left thumb pain Yes all other systems are reviewed and are negative PMFSH Social History Social History Substance Use Type: Marijuana Advance Directives: No Advance Directives Information Provided: No Physical Exam ED Vital Signs: Vital Signs - 24 hr 12/01/24 13:15 Temperature 97.7 F Pulse Rate 77 Respiratory Rate 20 Blood Pressure 122/82 Pulse Oximetry 97 Oxygen Delivery Method Room Air BMI result Body Mass Index 22.8 Const General: cooperative, healthy appearing, comfortable, no acute distress, well developed, alert, awake and Physically active Orientation/consciousness: patient oriented x3 [facility] Head: Yes normal to inspection, Yes No palpable skull fracture present, Yes normocephalic and Yes atraumatic Eyes General: appearance normal, both eyes and all related structures Neck Neck: Yes normal visual inspection, Yes full ROM, Yes no lymphadenopathy, Yes no meningeal signs, Yes trachea midline, Yes supple, No anterior neck swelling and No tender Chest Chest palpation & inspection: normal inspection of the chest and normal palpation of entire chest wall Resp Effort & Inspection: normal respiratory effort and able to speak in complete sentences Auscultation: clear to auscultation bilaterally Cardio Jugular venous distension: no JVD Heart sounds: S1 normal heart sound present and S2 normal heart sound present GI Inspection: Yes normal to inspection Palpation (GI): Soft to palpation, not firm, nontender, no guarding and not rigid General: Yes no CVA tenderness Back/Spine/Pelvis Back: no CVA tenderness and No back tenderness Skin General skin exam: no rashes or lesions noted, elasticity normal and turgor normal Neuro General: patient oriented x3, gait normal, tone normal, moves all extremities, Normal light touch and pain sensation, no meningeal signs, no focal motor deficits, CN's II-XI intact bilaterally and normal sensation to monofilament Extrem General: Yes normal to inspection and Yes full ROM Hand/finger images: 2 1. Positive for tenderness and slight swelling on palpation without any green yellow pus discharge. Negative for stiffness or bluish black discoloration. Positive for mild erythema. Negative for signs of tenosynovitis. All fingers able to move. Rest of extremity normal. Motor/neuro/vascular exam intact Psych Appearance: grossly normal, well kempt and not disheveled Course Course Course Narrative: RME performed by Elisa Bills PA-C. Patient is a 49 year old assigned male at presenting to the emergency department with a left thumb infection. Detailed physical exam and review of systems are deferred to the prosthetics technician. Patient placed back in the waiting room pending room availability. Medical Decision Making Medical Decision Making MDM Narrative: 49-year-old male presents to ED for right thumb pain irritation. Physical exam profuse early cellulitis. Not suspecting any osteomyelitis, tenosynovitis, compartment syndrome, arterial occlusion, DVT, necrotizing fasciitis, any other life-threatening etiology. Patient will be discharged with antibiotics informed to follow up with primary care provider. Patient explained worrisome signs informed return to the ED immediately. Differential Diagnosis Differential Diagnoses: The differential diagnosis associated with the presentation includes (Cellulitis contact dermatitis) Admission/Observation Consideration of admission/observation: Escalation of care including admission/observation considered Independent Historian Clinical information obtained from an independent historian. History obtained from or confirmed by: Other (patient) External Record Review External record reviewed: Other (prior visits) Prescription Management I considered prescription management with: Antibiotic Discharge Plan Discharge Clinical Impression: Cellulitis Patient Disposition: Home, Self-Care Instructions: Cellulitis (ED), Warm Compress or Soak (ED) Additional Instructions: Recommend follow-up with primary care provider. Return to the ED immediately for any worsening redness, swelling, pus discharge, foul odor, bluish black discoloration, fever, chills, stiffness, or any other concerning symptoms. Recommend warm compress on thumb 4 times a day for 15 minutes. Prescriptions: New cephalexin 500 mg capsule 500 mg PO QID 7 Days Qty: 28 0RF doxycycline hyclate 100 mg capsule 100 mg PO BID 7 Days Qty: 14 0RF naproxen 500 mg tablet 500 mg PO BID PRN (Reason: pain) 7 Days Qty: 14 0RF No Action cephalexin 500 mg capsule 500 mg PO Q6H 7 Days Qty: 28 0RF albuterol sulfate 90 mcg/actuation HFA aerosol inhaler 2 puff inhalation Q4-6H MDD 4 PRN (Reason: shortness of breath or wheezing) Qty: 8.5 0RF prednisone 20 mg tablet 40 mg PO DAILY Qty: 8 0RF cephalexin 500 mg capsule 500 mg PO QID 5 Days Qty: 20 0RF doxycycline hyclate 100 mg capsule 100 mg PO BID 5 Days Qty: 10 0RF efinaconazole 10 % solution with applicator 1 appl topical DAILY Qty: 8 0RF Stand Alone Forms: Work/School Release Print Language: [place]ian
[2024-04-26 17:05] VITALS: BP 122/82; PULSE 77; RESP 20; TEMP 36.5; O2SAT 97
== END 2024-04-26 17:06 | disposition home or self-care (01) ==
PROVIDERS: Emergency Provider Emergency Medicine; PCP Registered Nurse
DX: L03.011 Cellulitis of right finger (principal)
CPT/HCPCS: 99283

== ENCOUNTER 2024-04-28 14:37 | Emergency (ER) | payer OTHER, SELFPAY ==
[2024-04-28 15:19] VITALS: BP 116/82; PULSE 67; RESP 16; TEMP 36.6; O2SAT 98; BMI 23.5
--- NOTE | 2024-04-28 15:48 | ED.GENADULT ---
HPI - General Adult General Chief complaint: General Medical Stated complaint: Swelling R thumb Time Seen by Provider: 04/28/24 17:50 Source: patient Mode of arrival: ambulatory Limitations: no limitations History of Present Illness ED Provider: Devin VARGAS narrative: Patient is a 49-year-old male presenting to the emergency department with complaint of pain and swelling to lateral nail fold of right thumb. He was seen here on 04/26 and started on doxy and Keflex. Reports increased swelling since that time. Denies any spontaneous drainage. Denies fevers, chills, body aches. 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 He is trying to be moved to a different area where he will not have to submerge his hands and water. He reports history of multiple paronychias in the past. MD complaint: thumb pain Onset (ago): day(s) Associated symptoms: denies other symptoms Treatments prior to arrival: other Related Data Previous Rx's ?Medication ?Instructions ?Recorded cephalexin 500 mg capsule 500 mg PO Q6H 7 days #28 caps 01/02/24 albuterol sulfate 90 mcg/actuation 2 puff inhalation Q4-6H PRN 03/28/24 aerosol inhaler shortness of breath or wheezing #8.5 grams prednisone 20 mg tablet 40 mg (2 x 20 mg) PO DAILY #8 tabs 03/28/24 cephalexin 500 mg capsule 500 mg PO QID 5 days #20 caps 04/07/24 doxycycline hyclate 100 mg capsule 100 mg PO BID 5 days #10 caps 04/07/24 efinaconazole 10 % topical 1 appl topical DAILY #8 mL 04/07/24 solution with applicator cephalexin 500 mg capsule 500 mg PO QID 7 days #28 caps 04/26/24 doxycycline hyclate 100 mg capsule 100 mg PO BID 7 days #14 caps 04/26/24 naproxen 500 mg tablet 500 mg PO BID PRN pain 7 days #14 04/26/24 tabs Allergies Allergy/AdvReac Type Severity Reaction Status Date / Time No Known Allergies Allergy Verified 04/28/24 15:20 Review of Systems Review of Systems: As per HPI Yes all other systems are reviewed and are negative Constitutional: Constitutional: Reports as per HPI PMFSH Social History Social History Substance Use Type: Marijuana Advance Directives: No Advance Directives Information Provided: No Physical Exam ED Vital Signs: Vital Signs - 24 hr 04/28/24 15:19 Temperature 98 F Pulse Rate 67 Respiratory Rate 16 Blood Pressure 116/82 Pulse Oximetry 98 Oxygen Delivery Method Room Air BMI result Body Mass Index 23.5 Vital signs have been reviewed and appear to be correct. Blood pressure normal. Heart rate normal. Respiratory rate normal. Temperature normal. Oxygen saturation normal. Const General: cooperative, healthy appearing and no acute distress Orientation/consciousness: oriented to person, oriented to place, oriented to time and patient oriented x3 Limitations: no limitations HENMT Head: Yes normocephalic and Yes atraumatic Ears: external ears normal General nose exam: Normal external nose present Face and sinus: Yes face symmetric Mouth: oropharynx normal and moist mucous membranes Throat: Yes uvula midline Eyes Pupils: Equal, round and reactive pupils present Neck Neck: Yes normal visual inspection and Yes supple Resp Effort & Inspection: normal respiratory effort and able to speak in complete sentences Auscultation: clear to auscultation bilaterally Cardio Rate: regular rate Rhythm: regular rhythm Heart sounds: S1 normal heart sound present and S2 normal heart sound present Skin General skin exam: elasticity normal and turgor normal Neuro General: oriented to person, oriented to place, oriented to time, patient oriented x3, moves all extremities, no focal motor deficits and CN's II-XI intact bilaterally Cranial nerves: Yes Equal, round and reactive pupils present Cognition (Neuro): normal cognition Extrem General: Yes full ROM, Yes no pedal edema and Yes no calf tenderness Right upper extremity: Extremity exam: right hand Details: neuromotor exam normal, neurosensory exam normal, tenderness Location: of the thumb Location: at the nailbed (ulnar side) and normal ROM of fingers Hand/finger images: 1. swelling and fluctuance to lateral nail fold of right thumb on ulnar side Psych Mental Status: mental status grossly normal Affect: normal affect Thought process: Normal thought process present Course Course Course Narrative: This is a rapid medical exam performed by Maria Elena Singh PA-C. Patient is a 49-year-old male presenting with right thumb pain and swelling x2 days. Swelling noted along lateral aspect of the right thumb, is tender to palpation, mildly erythematous, no active discharge. Likely a paronychia, the patient needs I and D. no indication for labs or imaging. the patient is hemodynamically stable can return to the waiting room pending his full medical assessment. Medications Administered Discontinued Medications Generic Name Dose Route Start Last Admin Trade Name Lyle PRN Reason Stop Dose Admin Lidocaine HCl 5 ml 04/28/24 17:52 04/28/24 17:57 Lidocaine Hcl 1 % Mpf 5 Ml Vial INFILTRATI 04/28/24 17:53 5 ml ONCE ONE Administration Procedures Abscess I/D Site: hand (thumb) Side (if applicable): right Local Anesthetic: lidocaine 1% Amount of anesthesia used (mL): 1 Technique: needle aspiration Amount of fluid expressed (mL): 0.5 Sent for culture/gram staining?: No Irrigation: No Packing used?: none Medical Decision Making Medical Decision Making [facility] Narrative: Patient is a 49-year-old male presenting to the emergency department with complaint of pain and swelling to lateral nail fold of right thumb. On exam patient is awake, A+Ox3, VS WNL, afebrile, normal neurological exam without focal deficits, physical exam findings as above. Given reported symptoms and physical exam findings, initial differential includes paronychia, cellulitis. Do not suspect felon, osteomyelitis. Drained as per procedure note. Patient is already on dual coverage antibiotics, has been taking less than 48 hours. Worrisome signs and symptoms for which patient should return to the ED were discussed at bedside. Advised patient to complete full courses of antibiotics as prescribed. Follow-up with PCP. Will provide patient a note for work that he is not able to submerge hand in water until fully healed, we will have him follow up with [facility]. Patient verbalized understanding of and agreement with plan. Differential Diagnosis Differential Diagnoses: The differential diagnosis associated with the presentation includes as per [facility] External Record Review External record reviewed: Inpatient record, Office record and Outpatient record Discharge Plan Discharge Clinical Impression: Acute paronychia of right thumb Patient Disposition: Home, Self-Care Instructions: Paronychia (ED) Additional Instructions: You were evaluated in the emergency department today for pain and swelling to your thumb which is due to an infection called paronychia. The area was drained in the emergency department today which should help the infection heal faster. We recommend that you soak her hand in warm salt water for 10-15 minutes several times daily. Otherwise you should not submerge your hand in water. Complete both courses of antibiotics that were prescribed on April 26. Assess the area daily. Return to the emergency department if you develop new redness, swelling, redness streaking up your hand, fever or any other concerning symptoms. [facility] [address] [place] [address] Prescriptions: No Action cephalexin 500 mg capsule 500 mg PO Q6H 7 Days Qty: 28 0RF cephalexin 500 mg capsule 500 mg PO QID 7 Days Qty: 28 0RF doxycycline hyclate 100 mg capsule 100 mg PO BID 7 Days Qty: 14 0RF naproxen 500 mg tablet 500 mg PO BID PRN (Reason: pain) 7 Days Qty: 14 0RF albuterol sulfate 90 mcg/actuation HFA aerosol inhaler 2 puff inhalation Q4-6H MDD 4 PRN (Reason: shortness of breath or wheezing) Qty: 8.5 0RF prednisone 20 mg tablet 40 mg PO DAILY Qty: 8 0RF cephalexin 500 mg capsule 500 mg PO QID 5 Days Qty: 20 0RF doxycycline hyclate 100 mg capsule 100 mg PO BID 5 Days Qty: 10 0RF efinaconazole 10 % solution with applicator 1 appl topical DAILY Qty: 8 0RF Stand Alone Forms: Work/School Release Print Language: Maltese
[2024-04-28] MEDS: Lidocaine HCl 1 % MPF 5 ML VIAL INFILTRATI (17:57)
[2024-04-28 18:35] VITALS: BP 143/83; PULSE 64; RESP 16; TEMP 36.8; O2SAT 100
== END 2024-04-28 18:39 | disposition home or self-care (01) ==
PROVIDERS: Emergency Provider Emergency Medicine Emergency Medical Services; PCP Registered Nurse
DX: L03.011 Cellulitis of right finger (principal); R60.0 Localized edema; M79.641 Pain in right hand
CPT/HCPCS: 26010; 99282; 99284; J2003

== ENCOUNTER 2024-04-30 13:17 | Emergency (ER) | payer OTHER, SELFPAY ==
--- NOTE | ~2024-04-30 | XR_ITS ---
EXAMINATION: XR FINGER, RIGHT CLINICAL INFORMATION: swelling distal right thumb ; infection COMPARISON: None available. TECHNIQUE: Three views of the right thumb. FINDINGS: Bony structures are normal with normal alignment. No fractures. No erosions. No focal osteopenia. Alignment is anatomic. Joint spaces are maintained. No soft tissue abnormalities. XR/XR finger RT min 2V IMPRESSION: Normal right thumb radiographs. Electronically signed by: Alonso Ingram MD 04/30/2024 02:29 PM MALICK
[2024-04-30 13:45] VITALS: BP 129/70; PULSE 80; RESP 20; TEMP 36.4; O2SAT 98; BMI 24.5
--- NOTE | 2024-04-30 13:47 | ED.UPPEXIN ---
HPI - Extremity Injury (Upper) General Chief Complaint: Extremity Injury, Upper Stated Complaint: Thumb swelling Time Seen by Provider: 04/30/24 18:39 Source: patient Mode of arrival: ambulatory Limitations: no limitations History of Present Illness ED Provider: DR. Barrios HPI narrative: This is a 49-year-old male return to the emergency department for evaluation of right thumb paronychia/infection/abscess for 3-4 days, patient was seen 2 days ago in the emergency department had a right thumb abscess I&D and patient was placed on doxycycline and Keflex patient return for increased pain and pressure around the nail of the right thumb and unable to tolerate pain. No fever, no chills. Related Data Previous Rx's ?Medication ?Instructions ?Recorded cephalexin 500 mg capsule 500 mg PO Q6H 7 days #28 caps 01/02/24 albuterol sulfate 90 mcg/actuation 2 puff inhalation Q4-6H PRN 03/28/24 aerosol inhaler shortness of breath or wheezing #8.5 grams prednisone 20 mg tablet 40 mg (2 x 20 mg) PO DAILY #8 tabs 03/28/24 cephalexin 500 mg capsule 500 mg PO QID 5 days #20 caps 04/07/24 doxycycline hyclate 100 mg capsule 100 mg PO BID 5 days #10 caps 04/07/24 efinaconazole 10 % topical 1 appl topical DAILY #8 mL 04/07/24 solution with applicator cephalexin 500 mg capsule 500 mg PO QID 7 days #28 caps 04/26/24 doxycycline hyclate 100 mg capsule 100 mg PO BID 7 days #14 caps 04/26/24 naproxen 500 mg tablet 500 mg PO BID PRN pain 7 days #14 04/26/24 tabs Allergies Allergy/AdvReac Type Severity Reaction Status Date / Time No Known Allergies Allergy Verified 04/30/24 13:48 Review of Systems Review of Systems: All other systems are reviewed and are negative Constitutional: Reports as per HPI and Reports no additional constitutional complaints Eyes: Reports as per HPI and Reports no additional eye complaints Reports system reviewed and no additional complaints, except as documented Cardiovascular: Reports as per HPI and Reports no additional cardiovascular complaints Respiratory: Reports as per HPI and Reports no additional respiratory complaints Gastrointestinal: Reports as per HPI and Reports no additional gastrointestinal complaints Genitourinary: Reports no additional female genitourinary complaints Musculoskeletal: Reports no additional musculoskeletal complaints Skin/Breast: Reports system reviewed and no additional complaints, except as docu Psychiatric: Reports no additional psychiatric complaints Endocrine: Reports no additional endocrine complaints Hematologic/Lymphatic: Reports no additional hematologic/lymphatic complaints Allergic/Immunologic: Reports no additional allergic/immunologic complaints Reports system reviewed and no additional complaints, except as documented and Reports Abnormal speech present [facility] Social History Social History Substance Use Type: Marijuana Advance Directives: No Advance Directives Information Provided: No Do you have a plan to hurt others: No Plan Physical Exam Vital Signs: Vital Signs: Last Vital Signs Temp 97.6 F 04/30/24 13:45 Pulse 80 04/30/24 13:45 Resp 20 04/30/24 13:45 BP 129/70 04/30/24 13:45 Pulse Ox 98 04/30/24 13:45 O2 Del Method Room Air 04/30/24 13:45 BMI result Body Mass Index 24.5 Vital signs have been reviewed and appear to be correct. Blood pressure elevated. Heart rate normal. Respiratory rate normal. Temperature normal. Oxygen saturation normal. Appearance: Alert. Oriented X3. No acute distress. Head: Normal external exam. Normocephalic. Atraumatic. No Saxena signs noted. No raccoon eyes noted Eyes: PERRLA. EOMI. Conjunctiva and sclera normal. Eyelids normal. ENT: TM's Normal. Pharynx normal. Uvula midline. Moist mucous membranes. No trismus noted. No drooling noted. No muffled voice noted. Neck: Normal inspection. Neck supple. FROM. No adenopathy. Thyroid Normal. No meningeal signs. No neck mass noted. CVS: Normal heart rate and rhythm. Heart sound normal. No murmurs noted. Pulses normal throughout. Respiratory: No respiratory distress. Painless inspiration. Breath sounds normal. No wheezes/rales/rhonchi noted. Chest nontender. No accessory muscle usage noted or decreased air movement noted. Abdomen: Soft and nontender. Bowel sounds normal in all 4 quadrants. No distention noted. No organomegaly noted. No visible injury noted. Back: No CVA tenderness. Full range of motion noted. Skin: Skin warm and dry. Normal skin color. Normal skin turgor. No rashes/lesions/lacerations noted. Extremities: Right hand: Pain, cellulitis, tender fluctuant swelling of the distal phalanx, neurovascularly intact. Neuro: Oriented X 3. Cranial nerve exam: II-XII are grossly intact No motor deficit. No sensory deficit. Reflexes normal. Course Course Course Narrative: This is a Rapid Medical Examination (RME) performed by Kristan Hnedrix PA-C in triage. Full HPI, ROS, assessment and treatment plan per primary provider in the Main ED. 49 yo male here for eval of swelling/ pain to the right thumb x1 week. seen in ED on 03/28/24, had paronychia drained. currently on dual antibiotics without improvement. works as a wine steward at [employer], states it has been difficulty working with this pain. no blunt injury/ trauma. thumb now more swollen and painful, difficulty flexin. + noted swelling to tip of right 1st digit with erythema, primarily along nail bed. Plan: labs, XR, I&D Reevaluation(s) Reevaluation #1: Right thumb paronychia with abscess that was I&D in the emergency department with copious of pus came out patient feels better. Patient was instructed to keep the wound dry and clean, continue with the antibiotic. Time: 19:10 Medical Decision Making Differential Diagnosis Differential Diagnoses: The differential diagnosis associated with the presentation includes (Paronychia, felon, abscess, osteomyelitis, cellulitis.) Admission/Observation Consideration of admission/observation: Escalation of care including admission/observation considered Lab Data 04/30/24 14:04 04/30/24 14:04 Labs: Lab Results 04/30/24 Range/Units 14:04 WBC 10.9 H (4.8-10.8) X10*3/uL RBC 4.94 (4.60-5.80) X10*6/uL Hgb 14.8 (14.0-18.0) g/dl Hct 43.0 (42.0-52.0) % MCV 87.0 (80.0-98.0) fL MCH 30.0 (27.0-33.0) pg MCHC 34.4 (31.0-36.0) g/dl RDW 12.1 (11.0-16.0) % Plt Count 243 (160-400) X10*3/uL MPV 10.1 (9.4-12.4) fL Immature Gran % (Auto) 0.4 (0.0-0.4) % Neut % (Auto) 73.3 H (45-73) % Lymph % (Auto) 17.0 L (20-40) % [place] % (Auto) 7.8 (2-11) % Eos % (Auto) 1.0 (0-4) % Baso % (Auto) 0.5 (0-2) % Lymph # (Auto) 1.9 (1.2-4.9) X10*3/uL [place] # (Auto) 0.9 (0.1-1.2) X10*3/uL Eos # (Auto) 0.1 (0.0-0.4) X10*3/uL Baso # (Auto) 0.1 (0.0-0.2) X10*3/uL Abs Immat Gran (auto) 0.04 H (0.00-0.03) X10*3/uL Absolute Neuts (auto) 8.0 (2.0-8.3) x10*3/uL Absolute Nucleated RBC 0.000 (0.0-0.012) X10*3/uL Nucleated RBC % (auto) 0.0 (0.0-0.2) /100WBC Sodium 139 (135-145) mmol/L Potassium 4.4 (3.3-5.1) mmol/L Chloride 108 (96-108) mmol/L Carbon Dioxide 27 (22-29) mmol/L Anion Gap 8 L (12-20) BUN 9 (9-16) mg/dL Creatinine 0.82 (0.5-1.4) mg/dL Estim Creat Clear Calc 104.1 Estimated GFR > 60 Random Glucose 100 (60-115) mg/dL Calcium 9.6 D (8.4-10.2) mg/dL Total Bilirubin 0.3 (0.0-1.0) mg/dL AST 20 (5-37) U/L ALT 18 (0-40) U/L Alkaline Phosphatase 49 (39-117) U/L Total Protein 7.1 (6.5-8.0) g/dL Albumin 4.0 (3.5-5.0) g/dL Independent Interpretation I performed an independent interpretation of an: Plain X-Ray (Right hand:Normal right thumb radiographs.) Radiology Impression Discussion of test interpretation with radiology: I have reviewed the radiologist's reading. Procedures Abscess I/D Site: hand (Thumb) Side (if applicable): right Local Anesthetic: lidocaine 1% Amount of anesthesia used (mL): 2 Technique: incised with blade Amount of fluid expressed (mL): 3 Sent for culture/gram staining?: No Irrigation: No Packing used?: none Discharge Plan Discharge Clinical Impression: Acute paronychia of right thumb, Abscess around nail of index finger Patient Disposition: Home, Self-Care Instructions: Paronychia (ED) Additional Instructions: Keep your thumb dry, dressed, and clean. Rest from your job for 2-3 days until your thumb he will to avoid reinfection. Take your antibiotic as prescribed. Prescriptions: No Action cephalexin 500 mg capsule 500 mg PO Q6H 7 Days Qty: 28 0RF cephalexin 500 mg capsule 500 mg PO QID 7 Days Qty: 28 0RF doxycycline hyclate 100 mg capsule 100 mg PO BID 7 Days Qty: 14 0RF naproxen 500 mg tablet 500 mg PO BID PRN (Reason: pain) 7 Days Qty: 14 0RF albuterol sulfate 90 mcg/actuation HFA aerosol inhaler 2 puff inhalation Q4-6H MDD 4 PRN (Reason: shortness of breath or wheezing) Qty: 8.5 0RF prednisone 20 mg tablet 40 mg PO DAILY Qty: 8 0RF cephalexin 500 mg capsule 500 mg PO QID 5 Days Qty: 20 0RF doxycycline hyclate 100 mg capsule 100 mg PO BID 5 Days Qty: 10 0RF efinaconazole 10 % solution with applicator 1 appl topical DAILY Qty: 8 0RF Referrals: Catherine Acosta MD [Physician] - Stand Alone Forms: Work/School Release Print Language: Ecuadorean
[2024-04-30 14:08] LABS: MANUAL DIFF FLAG NO
[2024-04-30 14:11] LABS: Basophils Absolute Auto 0.1 X10*3/uL (0.0-0.2); Basophils Percent Auto 0.5 % (0-2); Eosinophils Absolute Auto 0.1 X10*3/uL (0.0-0.4); Hemoglobin 14.8 g/dl (14.0-18.0); Imm Gran Abs Auto 0.04 X10*3/uL (0.00-0.03); Imm Gran Pct Auto 0.4 % (0.0-0.4); Lymphocytes Absolute Auto 1.9 X10*3/uL (1.2-4.9); Mean Corpuscular HGB Conc 34.4 g/dl (31.0-36.0); Mean Platelet Volume 10.1 fL (9.4-12.4); Monocytes Absolute Auto 0.9 X10*3/uL (0.1-1.2); Monocytes Percent Auto 7.8 % (2-11); Neutrophils Percent Auto 73.3 % (45-73); Platelet Count 243 X10*3/uL (160-400); Red Blood Count 4.94 X10*6/uL (4.60-5.80); Red Cell Distribution Width 12.1 % (11.0-16.0); White Blood Count 10.9 X10*3/uL (4.8-10.8)
[2024-04-30 14:24] LABS: Alanine Aminotransferase 18 U/L (0-40); Alkaline Phosphatase 49 U/L (39-117); Anion Gap 8 (12-20); Aspartate Amino Transferase 20 U/L (5-37); Bilirubin Total 0.3 mg/dL (0.0-1.0); Blood Urea Nitrogen 9 mg/dL (9-16); Calcium 9.6 mg/dL (8.4-10.2); Carbon Dioxide 27 mmol/L (22-29); Chloride 108 mmol/L (96-108); Creatinine Clr Calc Pharmacy 104.1; Estimated Glomerular Filt Rate > 60; Glucose Random 100 mg/dL (60-115); Potassium 4.4 mmol/L (3.3-5.1); Sodium 139 mmol/L (135-145); Total Protein 7.1 g/dL (6.5-8.0)
[2024-04-30 19:11] VITALS: BP 129/70; PULSE 80; RESP 20; TEMP 36.4; O2SAT 98
== END 2024-04-30 19:11 | disposition home or self-care (01) ==
PROVIDERS: Physician Assistant Medical; Emergency Provider Emergency Medicine
DX: L03.011 Cellulitis of right finger (principal); M79.644 Pain in right finger(s); Z79.899 Other long term (current) drug therapy
CPT/HCPCS: 26010; 36415; 73140; 80053; 85025; 99282; 99283; 99284

== ENCOUNTER → 2024-04-30 13:49 | Outpatient (BNV) | payer OTHER, SELFPAY | PROVIDERS: Visit Provider Radiology Diagnostic Radiology | DX: R22.31 Localized swelling, mass and lump, right upper limb (principal) | CPT/HCPCS: 73140 ==

== ENCOUNTER 2024-11-26 12:56 | Emergency (ER) | payer OTHER, SELFPAY ==
--- NOTE | ~2024-11-26 | XR_ITS ---
EXAMINATION: XR CHEST CLINICAL INFORMATION: Coughing. Pneumonia? COMPARISON: March 28, 2024 TECHNIQUE: Frontal view of the chest was obtained. FINDINGS: No significant abnormality is noted involving the heart, lungs, mediastinum, bony thorax or soft tissues. Marginal osteophytes are present involving right greater than left humeral heads. XR/XR chest 1V IMPRESSION: Unremarkable examination. Electronically signed by: Sanket Perez MD 11/26/2024 01:24 PM EDT
[2024-11-26 12:58] VITALS: BP 116/88; PULSE 95; RESP 18; TEMP 36.9; O2SAT 98; BMI 22.8
--- NOTE | 2024-11-26 13:15 | ED_ITS ---
HPI - General Adult General Chief complaint: Upper Respiratory Symptoms Stated complaint: cold, body aches, runny nose, congestion Time Seen by Provider: 11/26/24 13:01 Source: patient Mode of arrival: ambulatory Limitations: no limitations History of Present Illness ED Provider: Omar Robert [facility] narrative: 49-year-old male history of asthma presents to the ED for cough, body aches, runny nose and congestion. Patient denies any chest pain or shortness of breath. Patient denies any recent long travel or recent surgery. Patient denies any pleurisy. Related Data Previous Rx's ?Medication ?Instructions ?Recorded cephalexin 500 mg capsule 500 mg PO Q6H 7 days #28 cap s 01/02/24 albuterol sulfate 90 mcg/actuation 2 puff inhalation Q 4-6H PRN 03/28/24 aerosol inhaler shortness of breath or wheez ing #8.5 grams prednisone 20 mg tablet 40 mg (2 x 20 mg) PO DAILY # 8 tabs 03/28/24 cephalexin 500 mg capsule 500 mg PO QID 5 days #20 cap s 04/07/24 doxycycline hyclate 100 mg capsule 100 mg PO BID 5 day s #10 caps 04/07/24 efinaconazole 10 % topical 1 appl topical DAILY #8 mL 04/07/24 solution with applicator cephalexin 500 mg capsule 500 mg PO QID 7 days #28 cap s 04/26/24 doxycycline hyclate 100 mg capsule 100 mg PO BID 7 day s #14 caps 04/26/24 naproxen 500 mg tablet 500 mg PO BID PRN pain 7 day s #14 04/26/24 tabs azithromycin 250 mg tablet See Rx Instructions PO .COM PLEX #6 11/26/24 tabs benzonatate 200 mg capsule 200 mg PO TID PRN cough #15 caps 11/26/24 prednisone 20 mg tablet 40 mg (2 x 20 mg) PO DAILY 5 days 11/26/24 #10 tabs Allergies Allergy/AdvReac Type Severity Reaction Status Date / Time No Known Allergies Allergy Verified 11/26/24 13:01 Review of Systems Review of Systems: Coughing runny nose body aches congestion Yes all other systems are reviewed and are negative PMFSH Social History Social History Substance Use Type: Marijuana Advance Directives: No Advance Directives Information Provided: Yes Do you have a plan to hurt others: No Plan Physical Exam ED Vital Signs: Vital Signs - 24 hr 11/26/24 12:58 11/26/24 14:53 Temperature 98.5 F 98.5 F Pulse Rate 95 95 Respiratory Rate 18 18 Blood Pressure 116/88 116/88 Pulse Oximetry 98 98 Oxygen Delivery Method Room Air Room Air BMI result Body Mass Index 22.8 Const General: cooperative, healthy appearing, comfortable, no acute distress, well developed, alert, awake and Physically active Orientation/consciousness: patient oriented x3 HENMT Head: Yes normal to inspection, Yes No palpable skull fracture present, Yes normocephalic and Yes atraumatic Ears: hearing grossly normal bilaterally, external ears normal, TM's normal bilaterally, TM normal on the right, TM normal on the left, EAC's normal, mastoids normal and no periauricular adenopathy Throat: Yes posterior oropharynx normal, Yes tonsils normal and Yes uvula midline Eyes General: appearance normal, both eyes and all related structures Neck Neck: Yes normal visual inspection, Yes full ROM, Yes no lymphadenopathy, Yes no meningeal signs, Yes trachea midline, Yes supple, No anterior neck swelling and No tender Chest Chest palpation & inspection: normal inspection of the chest and normal palpation of entire chest wall Resp Effort & Inspection: normal respiratory effort and able to speak in complete sentences Auscultation: clear to auscultation bilaterally Cardio Jugular venous distension: no JVD Heart sounds: S1 normal heart sound present and S2 normal heart sound present GI Inspection: Yes normal to inspection Palpation (GI): Soft to palpation, not firm, nontender, no guarding and not rigid General: Yes no CVA tenderness Back/Spine/Pelvis Back: no CVA tenderness and No back tenderness Skin General skin exam: no rashes or lesions noted, elasticity normal and turgor normal Neuro General: patient oriented x3, gait normal, tone normal, moves all extremities, Normal light touch and pain sensation, no meningeal signs, no focal motor deficits, CN's II-XI intact bilaterally and normal sensation to monofilament Extrem General: Yes normal to inspection, Yes full ROM and Yes capillary refill normal Psych Appearance: grossly normal, well kempt and not disheveled Medical Decision Making Medical Decision Making MDM Narrative: 49-year-old male presents to ED for URI symptoms. Patient is not any distress vital signs stable. Chest x-ray SARs strep pending 2;20pm: Patient x-ray negative for pneumonia. COVID influenza RSV strep negative. History will be discharged with steroids and coughing medication. Not suspecting PE, [place], CHF, pericarditis, myocarditis, hypoxia, respiratory failure, any other life-threatening etiology. Differential Diagnosis Differential Diagnoses: The differential diagnosis associated with the presentation includes (Strep COVID influenza asthma) Admission/Observation Consideration of admission/observation: Escalation of care including admission/observation considered Lab Data MDM Lab Attestation statement: I reviewed the patient's lab results. Labs: Lab Results 11/26/24 11/26/24 Range/Units 13:07 13:08 Influenza Type A (PCR) NEGATIVE (Negative) Influenza Type B (PCR) NEGATIVE (Negative) RSV RNA Qual (PCR) NEGATIVE (Negative) SARS-CoV-2 RNA (RT-PCR) NEGATIVE (Negative) S. pyogenes GrpA RAYMUNDO Negative (Negative) Independent Interpretation I performed an independent interpretation of an: Plain X-Ray Radiology Impression Discussion of test interpretation with radiology: I have reviewed the radiologist's reading. Independent Historian Clinical information obtained from an independent historian. History obtained from or confirmed by: Other (Patient ) Prescription Management I considered prescription management with: Other (steroid) Discharge Plan Discharge Clinical Impression: Bronchitis, Upper respiratory infection Patient Disposition: Home, Self-Care Instructions: Upper Respiratory Infection (ED), Acute Bronchitis (ED) Additional Instructions: Recommend follow-up with your primary care provider. Return to the ED immediately for any chest pain, shortness of breath coughing up blood, weakness, dizziness or any other concerning symptoms. Continue using albuterol inhaler as needed. Prescriptions: New prednisone 20 mg tablet 40 mg PO DAILY 5 Days Qty: 10 0RF benzonatate 200 mg capsule 200 mg PO TID PRN (Reason: cough) Qty: 15 0RF azithromycin 250 mg tablet See Rx Instructions .ROUTE .COMPLEX Qty: 6 0RF Rx Instructions: For 250 mg dose pack: take 500 mg today (day 1), then 250 mg for 4 days (days 2-5) No Action cephalexin 500 mg capsule 500 mg PO Q6H 7 Days Qty: 28 0RF cephalexin 500 mg capsule 500 mg PO QID 7 Days Qty: 28 0RF doxycycline hyclate 100 mg capsule 100 mg PO BID 7 Days Qty: 14 0RF naproxen 500 mg tablet 500 mg PO BID PRN (Reason: pain) 7 Days Qty: 14 0RF albuterol sulfate 90 mcg/actuation HFA aerosol inhaler 2 puff inhalation Q4-6H MDD 4 PRN (Reason: shortness of breath or wheezing) Qty: 8.5 0RF prednisone 20 mg tablet 40 mg PO DAILY Qty: 8 0RF cephalexin 500 mg capsule 500 mg PO QID 5 Days Qty: 20 0RF doxycycline hyclate 100 mg capsule 100 mg PO BID 5 Days Qty: 10 0RF efinaconazole 10 % solution with applicator 1 appl topical DAILY Qty: 8 0RF Referrals: Yaneth Reich FNP [Primary Care Provider, Family Practice] - 2 days Referral Note: Bronchitis Clinical Impression: Upper respiratory infection; Bronchitis Stand Alone Forms: Work/School Release Interventions: ED Discharge Assessment Last Done: 11/26/24 14:53 Discharge Date/Time: 11/26/24 14:34 Print Language: Icelandic
--- OUTSIDE RECORDS SUMMARY | 2024-11-26 13:19 | XMS_ITS | Clinical Summary ---
Author Organization [facility] Address [address] [place] [address] Care Team Providers Care Heavy Equipment Technician Name Role Phone Unavailable Primary Care Provider Unavailabl e Source Comments PLEASE NOTE, if this patient is a minor, it may be UNLAWFUL to discuss sensitive information that is contained in these records (such as FAMILY PLANNING, MENTAL HEALTH or SUBSTANCE ABUSE) with the minor patient's parent or other person without the patient's specific authorization.[facility] Allergies No known active allergies Medications amoxicillin (AMOXIL) 500 mg capsuleIndicati ons:Tooth infection Take 1 Capsule by mouth 3 (three) times daily 21 Capsule 08/03/2022 Active ibuprofen 800 mg tabletIndicatio ns:Tooth pain Take 1 Tablet by mouth 3 (three) times daily as needed for pain 30 Tablet 08/03/2022 Active Active Problems No known active problems Encounters Date Type Department Care Team Description 11/17/2024 2:20 PM EDT Office Visit [address] [phone] Alyssa Sotelo DDS 10/24/2024 9:00 AM EDT Office Visit [address] [phone] Alyssa Sotelo DDS 09/17/2024 10:20 AM EDT Office Visit [address] [address] Alyssa Sotelo DDS from Last 3 Months Social History Tobacco Use Types Packs/Day Years Used Date Smoking Tobacco: Every Day Cigarettes Smokeless Tobacco: Current Tobacco Cessation:Ready to Q uit: Not Asked; Counseling Given: Not Answered Social Connections Answer Date Recorded Connectedness 0 02/06/2024 Financial Resource Strain Answer Date R ecorded Financial Resource Strain 0 2022 Stress Answer Date Recorded Stress 0 08/03/2022 Physical Activity Answer Date Recorded Physical Activity 0 08/03/2022 Food Insecurity Answer Date Recorded Food 0 02/20/2024 Transportation Needs Answer Date Record ed Transportation 0 08/03/2022 Housing Stability Answer Date Recorded Housing 0 08/03/2022 Safety and Environment Answer Date José Manuel rded Safety 0 08/03/2022 Utilities Answer Date Recorded Utilities 0 08/03/2022 Employment Answer Date Recorded Stress 0 02/06/2024 Sex and Gender Information Value Date Recorded Sex Assigned at Not on file Legal Sex Male 11:31 AM PDT Gender Identity Not on file Sexual Orientation Not on file Last Filed Vital Signs Vital Sign Reading Time Taken Comments Blood Pressure 141/91 03/13/2024 9:36 AM EDT Pulse 73 03/13/2024 9:36 AM EDT Temperature - - Respiratory Rate - - Oxygen Saturation - - Inhaled Oxygen Concentration - - Weight - - Height - - Body Mass Index - - Plan of Treatment Upcoming Encounters Date Type Department Care Team (Late st Contact Info) Description 12/02/2024 11:00 AM EDT Office Visit [address] [phone] Alyssa Sotelo, [address] [address] 12/03/2024 9:00 AM EDT Office Visit [address] [phone] Alyssa Sotelo [address] [address] Health Maintenance Due Date Last Done Comments Anxiety Screening 1977 Dental Prophy 1977 Hepatitis C Screening 1977 Lipid Screening 1977 Tobacco Cessation Counseling (#1) 1977 HIV Screening 02/18/1992 Imm-Hepatitis B (1 of 3 - 19 + 3-dose series) 02/18/1996 Imm-Pneumococcal (1 of 2 - PCV) 02/18/1996 CT Colonography 2022 Colonoscopy 2022 Colorectal Cancer Screening 2022 FIT/gFOBT 2022 Fecal DNA 2022 Flexible Sigmoidoscopy 2022 Dental Examination 08/25/2023 08/22/2022 Dental Perio Charting 08/25/2023 08/22/2022 [id number] ( season) 2024 022, 11/09/2020 Alcohol and Drug Screen 05/27/2024 Depression Annual Screen 05/27/2024 Imm-Influenza (Season Ended) 2025 Hypertension Screening (#1) 03/13/2025 Dental FMX/Pano 08/24/2027 08/21/2022 Diabetes Screening 11/12/2027 11/11/2024 Imm-DTaP/Tdap/Td (2 - Td or Tdap) 10/04/2032 023 Procedures Procedure Name Priority Date/Time Associated Diagnosis Comments CASE PRESENTATION SUBS DTL & EXTENSIVE TX PLN Routine 11/17/2024 2:20 PM EDT Complete edentulism, unspecified edentulism class COMPLETE DENTURE - FINAL IMPRESSIONS Routine 11/17/2024 2:20 PM EDT Complete edentulism, unspecified edentulism class Max COMPLETE DENTURE - MAXILLARY Routine 10/24/2024 9:00 AM EDT Complete edentulism, unspecified edentulism class Tequila COMPLETE DENTURE - MANDIBULAR Routine 10/24/2024 9:00 AM EDT Complete edentulism, unspecified edentulism class CASE PRESENTATION SUBS DTL & EXTENSIVE TX PLN Routine 10/24/2024 9:00 AM EDT Complete edentulism, unspecified edentulism class CASE PRESENTATION SUBS DTL & EXTENSIVE TX PLN Routine 09/17/2024 10:20 AM EDT Complete edentulism, unspecified edentulism class WAX BITE Routine 09/17/2024 10:20 AM EDT Complete edentulism, unspecified edentulism class COMP ORAL EVALUATION - NEW/ESTABLISHED PATIENT Routine 08/22/2022 2:20 PM EDT Caries Dental caries on smooth surface penetrating into dentin Retained tooth root PANORAMIC RADIOGRAPHIC IMAGE Routine 08/21/2022 2:00 PM EDT Chronic apical periodontitis from Last 3 Months or Most Recently Relevant to Health Maintenance Insurance [place] [facility]
--- OUTSIDE RECORDS SUMMARY | 2024-11-26 13:19 | XMS_ITS | Clinical Summary ---
Author Organization [facility] Address [address] [place] [address] Phone Care Team Providers Care Lumber Loader Name Role Phone Physician, Pcp Unknown Primary Care Provider Martha vailable Allergies No known active allergies Encounters Date Type Department Care Team Description 11/12/2024 12:01 AM EDT - 11/12/2024 4:38 AM EDT Emergency [facility] [address] [place] [address] Discharge Disposition: Left Against Medical Advice from Last 3 Months Social History Tobacco Use Types Packs/Day Years Used Date Smoking Tobacco: Never Assessed Sex and Gender Information Value Date Recorded Sex Assigned at Not on file Legal Sex Male 8:59 PM EST Gender Identity Not on file Sexual Orientation Not on file Last Filed Vital Signs Vital Sign Reading Time Taken Comments Blood Pressure 130/84 11/12/2024 12:02 AM EDT Pulse 84 11/12/2024 12:02 AM EDT Temperature 36.3 C (97.3 F) 11/12/2024 12:02 AM EDT Respiratory Rate 16 11/12/2024 12:02 AM EDT Oxygen Saturation 97% 11/12/2024 12:02 AM EDT Inhaled Oxygen Concentration - - Weight 69.9 kg (154 lb) 11/12/2024 12:02 AM EDT Height 172.7 cm (5' 8 ) 11/12/2024 12:02 AM EDT Body Mass Index 23.42 11/12/2024 12:02 AM EDT Plan of Treatment Health Maintenance Due Date Last Done Comments Pneumococcal Vaccine: Pediatrics (0 to 5 Years) and At-Risk Patients (6 to 64 Years) (1 of 2 - PCV) 02/18/1996 Cholesterol Screening (Lipid Panel) 06/21/2023 Colorectal Cancer Screening: Colonoscopy 06/21/2023 Depression Screening 06/21/2023 HIV Screening 06/21/2023 Hepatitis C Screening 06/21/2023 Social Influencers of Health Screening 06/21/2023 Hepatitis B Vaccines (2 of 3 - 19+ 3-dose series) 01/24/2024 12/27/2023 COVID-19 Vaccine (4 - 2023-2 5 season) 2024 07/04/2022, 07/19/2021, 11/09/2020 Influenza Vaccine (Season Ended) 2025 DTaP,Tdap,and Td Vaccines (2 - Td or Tdap) 10/04/2032 10/04/2022 HIB Vaccines Aged Out No longer eligi ble based on patient's age to complete this topic HPV Vaccines Aged Out No longer eligi ble based on patient's age to complete this topic Hepatitis A Vaccines Aged Out No long er eligible based on patient's age to complete this topic IPV Vaccines Aged Out No longer eligi ble based on patient's age to complete this topic MMR Vaccines Aged Out No longer eligi ble based on patient's age to complete this topic Meningococcal ACWY Vaccine Aged Out N o longer eligible based on patient's age to complete this topic Meningococcal B Vaccine Aged Out No l onger eligible based on patient's age to complete this topic RSV Immunization Patients Under 20 months Aged Out No longer eligible b ased on patient's age to complete this topic Varicella Vaccines Aged Out No longer eligible based on patient's age to complete this topic Procedures Procedure Name Priority Date/Time Associated Diagnosis Comments CBC WITH AUTO DIFFERENTIAL STAT 11/12/2024 12:11 AM EDT LIPASE STAT 11/12/2024 12:11 AM EDT MAGNESIUM STAT 11/12/2024 12:11 AM EDT COMPREHENSIVE METABOLIC PANEL STAT 11/12/2024 12:11 AM EDT CBC AND DIFFERENTIAL STAT 11/12/2024 12:11 AM EDT from Last 3 Months Results * (ABNORMAL) CBC auto differential (11/12/2024 12:11 AM EDT) WBC 10.9(H) 4.8 - 10.8 K/mcL LAB HEMETOLOGY METHOD 11/12/2024 12:35 AM [facility] RBC 5.00 4.50 - 5.50 M/mcL LAB HEMETOLOGY METHOD 11/12/2024 12:35 AM [facility] Hemoglobin 14.8 13.5 - 17.5 g/dL LAB HEMETOLOGY METHOD 11/12/2024 12:35 AM [facility] Hematocrit 43.2 42.0 - 54.0 % LAB HEMETOLOGY METHOD 11/12/2024 12:35 AM [facility] MCV 86.6 79.0 - 98.0 FL LAB HEMETOLOGY METHOD 11/12/2024 12:35 AM [facility] MCH 29.7 27.0 - 32.0 pcg LAB HEMETOLOGY METHOD 11/12/2024 12:35 AM [facility] MCHC 34.3 32.0 - 37.0 g/dL LAB HEMETOLOGY METHOD 11/12/2024 12:35 AM [facility] RDW 12.5 11.0 - 15.0 % LAB HEMETOLOGY METHOD 11/12/2024 12:35 AM [facility] Platelets 266 130 - 400 K/mcL LAB HEMETOLOGY METHOD 11/12/2024 12:35 AM [facility] MPV 10.4 7.0 - 11.0 FL LAB HEMETOLOGY METHOD 11/12/2024 12:35 AM [facility] NRBC 0.0 <1.0 % LAB HEMETOLOGY METHOD 11/12/2024 12:35 AM [facility] NRBC Absolute 0.00 <0.10 K/mcL LAB HEMETOLOGY METHOD 11/12/2024 12:35 AM [facility] Neutrophils Relative 65.1 % LAB HEMETOLOGY METHOD 11/12/2024 12:35 AM [facility] Lymphocytes Relative 25.7 % LAB HEMETOLOGY METHOD 11/12/2024 12:35 AM [facility] Monocytes Relative 7.7 % LAB HEMETOLOGY METHOD 11/12/2024 12:35 AM [facility] Eosinophils Relative 0.8 % LAB HEMETOLOGY METHOD 11/12/2024 12:35 AM [facility] Basophils Relative 0.5 % LAB HEMETOLOGY METHOD 11/12/2024 12:35 AM [facility] Immature Granulocytes Relative 0.2 % LAB HEMETOLOGY METHOD 11/12/2024 12:35 AM [facility] Neutrophils Absolute 7.07(H) 1.50 - 7.00 K/mcL LAB HEMETOLOGY METHOD 11/12/2024 12:35 AM [facility] Lymphocytes Absolute 2.79 1.00 - 5.00 K/mcL LAB HEMETOLOGY METHOD 11/12/2024 12:35 AM [facility] Monocytes Absolute 0.84 0.20 - 1.00 K/mcL LAB HEMETOLOGY METHOD 11/12/2024 12:35 AM [facility] Eosinophils Absolute 0.09 0.00 - 0.50 K/mcL LAB HEMETOLOGY METHOD 11/12/2024 12:35 AM [facility] Basophils Absolute 0.05 0.00 - 0.20 K/mcL LAB HEMETOLOGY METHOD 11/12/2024 12:35 AM [facility] Immature Granulocytes Absolute 0.02 0.00 - 0.03 K/mcL LAB HEMETOLOGY METHOD 11/12/2024 12:35 AM [facility] Blood Venous blood specimen / Unknown Venipuncture / Unknown 11/12/2024 12:11 AM EDT 11/12/2024 12:31 AM EDT Giulia Green MD LAB BLOOD ORDERABLES Fin al Result Performing Organization Address [facility] Co de Phone Number [facility] [address] [place] [address], [place] [phone] * Magnesium (11/12/2024 12:11 AM EDT) [facility] Magnesium 2.2 1.9 - 2.6 mg/dL LAB CHEMISTRY METHOD 11/12/2024 1:01 AM EDT [facility] Blood Venous blood specimen / Unknown Venipuncture / Unknown 11/12/2024 12:11 AM EDT 11/12/2024 12:31 AM EDT Giulia Green MD LAB BLOOD ORDERABLES Fin al Result Performing Organization Address [facility] [place] de Phone Number [facility] [address] [place] [address], [place] [phone] * Lipase (11/12/2024 12:11 AM EDT) [facility] Lipase 23 13 - 75 unit/L LAB CHEMISTRY METHOD 11/12/2024 1:01 AM EDT [facility] Blood Venous blood specimen / Unknown Venipuncture / Unknown 11/12/2024 12:11 AM EDT 11/12/2024 12:31 AM EDT Giulia Green MD LAB BLOOD ORDERABLES Fin al Result Performing Organization Address [facility]/ZIP Co de Phone Number [facility] [address] [place] [address], [place] [phone] * (ABNORMAL) Comprehensive metabolic panel (11/12/2024 12:11 AM EDT) [facility] Sodium 140 133 - 145 mmol/L LAB CHEMISTRY METHOD 11/12/2024 1:01 AM [facility] Potassium 3.9 3.5 - 5.5 mmol/L LAB CHEMISTRY METHOD 11/12/2024 1:01 AM [facility] Chloride 106 96 - 110 mmol/L LAB CHEMISTRY METHOD 11/12/2024 1:01 AM [facility] CO2 25 21 - 32 mmol/L LAB CHEMISTRY METHOD 11/12/2024 1:01 AM [facility] Anion Gap 9 3 - 11 LAB CHEMISTRY METHOD 11/12/2024 1:01 AM [facility] Glucose 135(H) 70 - 100 mg/dL LAB CHEMISTRY METHOD 11/12/2024 1:01 AM [facility] BUN 12 5 - 25 mg/dL LAB CHEMISTRY METHOD 11/12/2024 1:01 AM [facility] Creatinine 0.90 0.70 - 1.30 mg/dL LAB CHEMISTRY METHOD 11/12/2024 1:01 AM [facility] eGFR 106 >=60 mL/min/1. 73m2 LAB CHEMISTRY METHOD 11/12/2024 1:01 AM [facility] Comment:Calculation based on the Chronic Kidney Disease Epidemiology Collaboration (CKD-EPI) equation refit without adjustment for race. BUN/Creatinine Ratio 13.3 LAB CHEMISTRY METHOD 11/12/2024 1:01 AM [facility] Calcium 8.9 8.5 - 10.5 mg/dL LAB CHEMISTRY METHOD 11/12/2024 1:01 AM [facility] AST (SGOT) 20 10 - 42 unit/L LAB CHEMISTRY METHOD 11/12/2024 1:01 AM [facility] ALT (SGPT) 24 10 - 60 unit/L LAB CHEMISTRY METHOD 11/12/2024 1:01 AM [facility] Alkaline Phosphatase 62 42 - 121 unit/L LAB CHEMISTRY METHOD 11/12/2024 1:01 AM EDT [facility] Total Protein 6.9 6.0 - 8.0 g/dL LAB CHEMISTRY METHOD 11/12/2024 1:01 AM EDT [facility] Albumin 3.7 3.2 - 5.0 g/dL LAB CHEMISTRY METHOD 11/12/2024 1:01 AM EDT [facility] Total Bilirubin 0.3 0.0 - 1.4 mg/dL LAB CHEMISTRY METHOD 11/12/2024 1:01 AM EDT [facility] Blood Venous blood specimen / Unknown Venipuncture / Unknown 11/12/2024 12:11 AM EDT 11/12/2024 12:31 AM EDT us Giulia Green MD LAB BLOOD ORDERABLES Fin al Result [facility] [address] [place] [address], [place] [phone] from Last 3 Months Insurance [facility] MEDICAID ADVANTAGE Care Teams Lumber Loader Relationship Specialty Start Date End Date Physician, Pcp Unknown PCP - General 11/12/24
[2024-11-26 13:25] LABS: IDNOW Serial# 55D5AD1C; Strep A Nucleic Acid Negative (Negative)
[2024-11-26 14:18] LABS: Resp Syncy Virus RNA Qual PCR NEGATIVE (Negative); SARS COV2 PCR INHOUSE NEGATIVE (Negative)
[2024-11-26 14:53] VITALS: BP 116/88; PULSE 95; RESP 18; TEMP 36.9; O2SAT 98
== END 2024-11-26 14:34 | disposition home or self-care (01) ==
PROVIDERS: Physician Assistant; Emergency Provider Emergency Medicine; PCP Registered Nurse
DX: J40 Bronchitis, not specified as acute or chronic (principal); J06.9 Acute upper respiratory infection, unspecified; M79.10 Myalgia, unspecified site; R09.89 Other specified symptoms and signs involving the circulatory and respiratory systems; R05.9 Cough, unspecified; Z03.818 Encounter for observation for suspected exposure to other biological agents ruled out
CPT/HCPCS: 71045; 87637; 87651; 99282; 99283

== ENCOUNTER → 2024-11-26 13:01 | Outpatient (BNV) | payer OTHER, SELFPAY | PROVIDERS: Emergency Provider Emergency Medicine; PCP Registered Nurse; Visit Provider Radiology Diagnostic Radiology | DX: R05.9 Cough, unspecified (principal) | CPT/HCPCS: 71045 ==

== ENCOUNTER 2024-12-14 18:06 | Emergency (ER) | payer OTHER, SELFPAY ==
[2024-12-14 18:22] VITALS: BP 117/67; PULSE 73; RESP 17; TEMP 36.6; O2SAT 98; BMI 22.7
--- NOTE | 2024-12-14 18:26 | ED.SKABFB ---
HPI - Skin/Abscess/Foreign Bdy General Chief complaint: General Medical Stated complaint: right hand finger(s) wounds Time Seen by Provider: 12/14/24 18:26 Source: patient Mode of arrival: ambulatory Limitations: no limitations History of Present Illness ED Provider: Bela Henley NP HPI narrative: Patient is a 49-year-old male who presents emergency department expressed concern for potential infection to the digits of his right hand. He reports that he had an infection a couple of months ago that required treatment with oral antibiotics. He is concerned about getting another infection like this. He states that he currently is having discomfort to the right 3rd and 4th digit. He recently sustained an abrasion over the DIP of the right 3rd digit. He has been avoiding his hand soaking in water while working but yesterday he does admit that he had prolonged exposure though he was wearing gloves. There is no redness, swelling, pus-like drainage, inability to move the fingers. But is requesting antibiotics to prevent an infection like he experienced in the past. Related Data Previous Rx's ?Medication ?Instructions ?Recorded cephalexin 500 mg capsule 500 mg PO Q6H 7 days #28 caps 01/02/24 albuterol sulfate 90 mcg/actuation 2 puff inhalation Q4-6H PRN 03/28/24 aerosol inhaler shortness of breath or wheezing #8.5 grams prednisone 20 mg tablet 40 mg (2 x 20 mg) PO DAILY #8 tabs 03/28/24 cephalexin 500 mg capsule 500 mg PO QID 5 days #20 caps 04/07/24 doxycycline hyclate 100 mg capsule 100 mg PO BID 5 days #10 caps 04/07/24 efinaconazole 10 % topical 1 appl topical DAILY #8 mL 04/07/24 solution with applicator cephalexin 500 mg capsule 500 mg PO QID 7 days #28 caps 04/26/24 doxycycline hyclate 100 mg capsule 100 mg PO BID 7 days #14 caps 04/26/24 naproxen 500 mg tablet 500 mg PO BID PRN pain 7 days #14 04/26/24 tabs azithromycin 250 mg tablet See Rx Instructions PO .COMPLEX #6 11/26/24 tabs benzonatate 200 mg capsule 200 mg PO TID PRN cough #15 caps 11/26/24 prednisone 20 mg tablet 40 mg (2 x 20 mg) PO DAILY 5 days 11/26/24 #10 tabs bacitracin 500 unit/gram topical 1 appl topical TID #28 grams 12/14/24 ointment Allergies Allergy/AdvReac Type Severity Reaction Status Date / Time No Known Allergies Allergy Verified 12/14/24 18:25 Review of Systems Review of Systems: Yes all other systems are reviewed and are negative [facility] Past Medical History Attestation statement: The following information was validated with the patient. Source: old records reviewed Social History Social History Substance Use Type: Marijuana Physical Exam Exam: Exam: Appearance: Alert.?Oriented to person, place and time. No acute distress.?Normal affect. CVS: Heart sounds normal. Normal heart rate and rhythm.? Pulses normal.?? Respiratory: No respiratory distress.? Lung sounds clear to auscultation bilaterally?? Skin: Skin warm and dry.? Normal skin color.? Scabbed abrasion over DIP of right 3rd digit. All digits of the right hand without erythema, warmth, swelling, deformity, full range of motion extension and flexion Neuro: Moves all extremities spontaneously. Sensation intact bilaterally. Ambulates with normal steady gait. Medical Decision Making Medical Decision Making MDM Narrative: Patient is a 49-year-old male who presents emergency department expressed concern for getting sent to fingers of his right hand. As per HPI, he had a recent sections required antibiotic treatment. He was seen in this ER April of 2024 for paronychia. At this time he has a single scabbed abrasion to the DIP of the right 3rd digit, with no surrounding erythema or active drainage. Has full range of motion to the digits on the hand. No current sign of infection/cellulitis. Findings not consistent with septic joint. Advised he may utilize topical antibiotic ointment and reviewed strict return precautions. All questions answered. Stable for discharge Differential Diagnosis Differential Diagnoses: The differential diagnosis associated with the presentation includes (See narrative above) External Record Review External record reviewed: Outpatient record Prescription Management I considered prescription management with: Antibiotic Discharge Plan Discharge Clinical Impression: Abrasion of finger of right hand Qualifiers: Encounter type: initial encounter Qualified Code(s): S60.419A - Abrasion of unspecified finger, initial encounter Patient Disposition: Home, Self-Care Additional Instructions: Please be sure that you are washing hands with warm water and mild meds scented soap. Thoroughly drive him. Apply topical antibiotic ointment 3 times daily, you may cover with a bandage. Follow-up with your primary care doctor. Seek re-evaluation with any new or worsening symptoms or concerns including redness, pain, swelling, pus-like discharge, inability to move the fingers, fevers, chills. Prescriptions: New bacitracin 500 unit/gram ointment 1 appl topical TID Qty: 28 0RF No Action cephalexin 500 mg capsule 500 mg PO Q6H 7 Days Qty: 28 0RF cephalexin 500 mg capsule 500 mg PO QID 7 Days Qty: 28 0RF doxycycline hyclate 100 mg capsule 100 mg PO BID 7 Days Qty: 14 0RF naproxen 500 mg tablet 500 mg PO BID PRN (Reason: pain) 7 Days Qty: 14 0RF prednisone 20 mg tablet 40 mg PO DAILY 5 Days Qty: 10 0RF benzonatate 200 mg capsule 200 mg PO TID PRN (Reason: cough) Qty: 15 0RF azithromycin 250 mg tablet See Rx Instructions .ROUTE .COMPLEX Qty: 6 0RF Rx Instructions: For 250 mg dose pack: take 500 mg today (day 1), then 250 mg for 4 days (days 2-5) albuterol sulfate 90 mcg/actuation HFA aerosol inhaler 2 puff inhalation Q4-6H MDD 4 PRN (Reason: shortness of breath or wheezing) Qty: 8.5 0RF prednisone 20 mg tablet 40 mg PO DAILY Qty: 8 0RF cephalexin 500 mg capsule 500 mg PO QID 5 Days Qty: 20 0RF doxycycline hyclate 100 mg capsule 100 mg PO BID 5 Days Qty: 10 0RF efinaconazole 10 % solution with applicator 1 appl topical DAILY Qty: 8 0RF Referrals: Yaneth Reich FNP [Primary Care Provider, Family Practice] Print Language: Cuban
[2024-12-14 18:40] VITALS: BP 117/67; PULSE 73; RESP 17; TEMP 36.6; O2SAT 98
== END 2024-12-14 18:40 | disposition home or self-care (01) ==
PROVIDERS: Emergency Provider Emergency Medicine; PCP Registered Nurse
DX: M79.644 Pain in right finger(s) (principal); S60.412D Abrasion of right middle finger, subsequent encounter; X58.XXXD Exposure to other specified factors, subsequent encounter
CPT/HCPCS: 99282; 99283